=== PATIENT | female | born 1960 | race Caucasian/White ===

== ENCOUNTER 2016-09-02 08:00 | Outpatient (CLI) | payer OTHER ==
[~2016-09-02] VITALS: Ht 177.8 cm; Wt 117.9 kg
[~2016-09-02 08:00] MED LIST: COUMADIN; DULO20CA PO
[2016-09-02] MEDS ORDERED: NAPR500T PO (08:15)
[2016-09-02] MEDS ORDERED: LOSA50TA36 PO (08:15)
== END 2016-09-02 08:21 ==
LOC: PREOP 08:00
PROVIDERS: ATTEND Surgery
DX: Z01.818 Encounter for other preprocedural examination (principal); K52.9 Noninfective gastroenteritis and colitis, unspecified

== ENCOUNTER 2016-09-05 07:27 | Day surgery (SDC) | payer OTHER ==
[~2016-09-05] VITALS: Ht 177.8 cm; Wt 117.9 kg
[~2016-09-05 07:27] MED LIST changes: +LOSA50TA36 PO; +NAPR500T PO
[2016-09-05] MEDS ORDERED: NS IV 500 ML 500 ML ONE (07:36)
[2016-09-05] MEDS ORDERED: NS IV 500 ML 500 ML IV PRN (07:45)
[2016-09-05] MEDS ORDERED: FLUMAZENIL (ROMAZICON) 0.1 MG/ML 5 ML VIAL INJ PRN (07:45)
[2016-09-05] MEDS ORDERED: NALOXONE 0.4 MG/ML 1 ML (NARCAN) VIAL IVP PRN (07:45)
[2016-09-05 07:46] VITALS: BP 145/98
[2016-09-05] MEDS ORDERED: MIDAZOLAM 2 MG/2 ML (VERSED) VIAL ONE ×4 (09:00→09:15)
[2016-09-05] MEDS ORDERED: fentaNYL INJECTION 100 MCG/2 ML AMP ONE ×2 (09:00→09:13)
[2016-09-05] MEDS: MIDAZOLAM 2 MG/2 ML (VERSED) VIAL IVP PRN ×4 (09:10→09:19)
[2016-09-05] MEDS: fentaNYL INJECTION 100 MCG/2 ML AMP IVP PRN ×4 (09:11→09:20)
--- NOTE | 2016-09-05 09:38 | Endoscopy Procedure Report ---
Endoscopy Report Date: Sep 05, 2016 Preoperative Diagnosis: diarrhea. Family history of polyps Study Performed: Colonoscopy Procedure Instrument: Colonoscope Endo Procedure/Findings Findings 1.: Normal Recommendations: Recommendations: 1.: Colonscopy in 5 years Copy Copies To 1: CRISTÓBAL GALLO MD, XAVIER M MD Sep 05, 2016 9:38 am
--- NOTE | 2016-09-05 09:38 | Conscious Sedation/ASA ---
Conscious Sedation Pre-Proced Time Reviewed: 08:49 ASA Class: 2 Airway Mallampati Classification: (rosebud appropriate class) I. II. III, IV Lungs Heart ASA score ASA 1: a normal healthy patient ASA 2: a patient with a mild systemic disease (mid diabetes, controlled hypertension, obesity ASA 3: a patient with a severe systemic disease that limits activity (angina , COPD, prior Myocardial infarction) ASA 4: a patient with an incapacitating disease that is a constant threat to life (CHF, renal failure) ASA 5: a moribund patient not expected to survive 24 hrs. (ruptured aneurysm) ASA 6: a declared brain patient whose organs are being harvested. For emergent operations, add the letter E after the classification Grade 2 Sedation Plan: Discussed options with patient/fam Note The patient is an appropriate candidate to undergo the planned procedure, sedation, and anesthesia. The patient immediately re-assessed prior to indication. YANETH CHESTER MD Sep 05, 2016 9:37 am
--- NOTE | 2016-09-05 09:39 | Discharge Inst-Simple/Standard ---
Discharge Inst-Standard Discharge Medications New, Converted or Re-Newed RX: Other Patient Instructions/Follow Up Plan of Care/Instructions/FU: follow-up with her primary. Repeat colonoscopy in 5 years Activity as Tolerated: Yes Discharge Diet: No Restrictions YANETH CHESTER MD Sep 05, 2016 9:39 am
[2016-09-05 09:45] VITALS: BP 149/72
[2016-09-05 10:15] VITALS: BP 134/68
[2016-09-05 10:30] VITALS: BP 134/68
--- OUTSIDE RECORDS SUMMARY | 2016-09-05 21:17 | XMS REPORT ---
Author Author KARLEY GUIDO Organization [employer] Address Unknown Phone Unavailable Care Team Providers Care Dance Coach Name Role Phone KARLEY GUIDO CP Unavailable Allergies No Known Allergies Problems Problem Type Condition ICD-9 Code Onset Dates Condition Status Problem Pain in joint, lower leg 719.46 Active Problem Neck sprain and strain 847.0 Active Problem Unspecified concussion 850.9 Active Problem Other abnormal glucose 790.29 Active Problem Attention deficit disorder of childhood with hyperactivity 314.01 Active Problem Unspecified hypothyroidism 244.9 Active Problem Other dyspnea and respiratory abnormalities 786.09 Active Problem Unspecified constipation 564.00 Active Problem Plantar fascial fibromatosis 728.71 Active Problem Dyspepsia and other specified disorders of function of stomach 536.8 Active Problem Unspecified abnormal mammogram 793.80 Active Problem Major depressive disorder, recurrent episode, severe, without mention of psychotic behavior 296.33 Active Problem Unspecified essential hypertension 401.9 Active Problem Contact dermatitis and other eczema, due to unspecified cause 692.9 Active Problem Unspecified sleep apnea 780.57 Active Problem Attention deficit disorder of childhood without mention of hyperactivity 314.00 Active Problem Other enthesopathy of ankle and tarsus 726.79 Active Problem Pain in joint, shoulder region 719.41 Active Problem Unspecified episodic mood disorder 296.90 Active Problem Acute sinusitis, unspecified 461.9 Active Problem Stomatitis and mucositis, unspecified 528.00 Active Medications No Known Medications Results No Known Results Summary Purpose [employer] Submission
--- OUTSIDE RECORDS SUMMARY | 2016-09-05 21:19 | XMS REPORT ---
Author Author KARLEY GUIDO Organization [employer] Address Unknown Phone Unavailable Care Team Providers Care Sales And Customer Relations Rep Name Role Phone KARLEY GUIDO CP Unavailable Allergies No Known Allergies Problems Problem Type Condition Code Onset Dates Condition Status Problem Pain [...]
--- OUTSIDE RECORDS SUMMARY | 2016-09-05 21:19 | XMS REPORT | Continuity of Care Document ---
Author Author [facility] Organization [facility] Address Unknown Phone Unavailable Allergies Active Description Code Type Severity Reaction Onset Reported/Identified Relationship to Patient Clinical Status Yes codeine Drug Allergy N/A N/A 08/06/2010 Yes codeine Drug Allergy 08/06/2010 Yes sulfa drug Drug Allergy 08/06/2010 Yes azithromycin Drug Allergy N/A N/A 01/11/2011 Yes azithromycin Drug Allergy 01/11/2011 Yes ERTHROMYCIN ERTHROMYCIN Unknown NAUSEA 03/31/2011 Yes Sulfa (Sulfonamide Antibiotics) [id number] Drug Allergy Unknown N/A 03/31/2011 Yes erythromycin base [id number] Drug Allergy Moderate RASH 09/02/2016 Medications Problems Date Dx Coded Attending Type Code Diagnosis Diagnosed By 08/06/2010 KARLEY GUIDO MD 453.89 ACUTE VENOUS EMBOLISM AND THROMBOSIS OF OTHER SPECIFIED VEINS 08/06/2010 453.89 ACUTE VENOUS EMBOLISM AND THROMBOSIS OF OTHER SPECIFIED VEINS 08/06/2010 453.89 ACUTE VENOUS EMBOLISM AND THROMBOSIS OF OTHER SPECIFIED VEINS 08/06/2010 TANYA PACKER APRN 453.89 ACUTE VENOUS EMBOLISM AND THROMBOSIS OF OTHER SPECIFIED VEINS 08/06/2010 KARLEY GUIDO MD 453.89 ACUTE VENOUS EMBOLISM AND THROMBOSIS OF OTHER SPECIFIED VEINS 08/06/2010 KARLEY GUIDO MD 453.89 ACUTE VENOUS EMBOLISM AND THROMBOSIS OF OTHER SPECIFIED VEINS 08/06/2010 KARLEY GUIDO MD 453.89 ACUTE VENOUS EMBOLISM AND THROMBOSIS OF OTHER SPECIFIED VEINS 08/06/2010 453.89 ACUTE VENOUS EMBOLISM AND THROMBOSIS OF OTHER SPECIFIED VEINS 08/06/2010 453.89 Acute Venous Embolism And Thrombosis Of Other Specified Veins 08/06/2010 453.89 Acute Venous Embolism And Thrombosis Of Other Specified Veins 08/06/2010 453.89 Acute Venous Embolism And Thrombosis Of Other Specified Veins 08/06/2010 453.89 Acute Venous Embolism And Thrombosis Of Other Specified Veins 08/06/2010 453.89 Acute Venous Embolism And Thrombosis Of Other Specified Veins 08/06/2010 453.89 Acute Venous Embolism And Thrombosis Of Other Specified Veins 08/06/2010 453.89 Acute Venous Embolism And Thrombosis Of Other Specified Veins 08/06/2010 453.89 Acute Venous Embolism And Thrombosis Of Other Specified Veins 08/06/2010 TANYA PACKER APRN 453.89 Acute Venous Embolism And Thrombosis Of Other Specified Veins 08/06/2010 TANYA PACKER APRN 453.89 Acute Venous Embolism And Thrombosis Of Other Specified Veins 08/06/2010 TANYA PACKER APRN 453.89 Acute Venous Embolism And Thrombosis Of Other Specified Veins 08/06/2010 TANYA PACKER APRN 453.89 Acute Venous Embolism And Thrombosis Of Other Specified Veins 08/06/2010 LINDA CORNEJO DO 453.89 ACUTE VENOUS EMBOLISM AND THROMBOSIS OF OTHER SPECIFIED VEINS 08/06/2010 KARLEY GUIDO MD 453.89 Acute Venous Embolism And Thrombosis Of Other Specified Veins 08/06/2010 KARLEY GUIDO MD 453.89 Acute Venous Embolism And Thrombosis Of Other Specified Veins 08/06/2010 BO LUIS DO 453.89 Acute Venous Embolism And Thrombosis Of Other Specified Veins 08/06/2010 BO LUIS DO 453.89 Acute Venous Embolism And Thrombosis Of Other Specified Veins 08/06/2010 KARLEY GUIDO MD 453.89 Acute Venous Embolism And Thrombosis Of Other Specified Veins 08/12/2010 KARLEY GUIDO MD V58.69 taking high-risk medication 08/12/2010 V58.69 taking high-risk medication 08/12/2010 V58.69 taking high-risk medication 08/12/2010 TANYA PACKER APRN V58.69 taking high-risk medication 08/12/2010 KARLEY GUIDO MD V58.69 taking high-risk medication 08/12/2010 KARLEY GUIDO MD V58.69 taking high-risk medication 08/12/2010 KARLEY GUIDO MD V58.69 taking high-risk medication 08/12/2010 V58.69 taking high-risk medication 08/12/2010 V58.69 taking high-risk medication 08/12/2010 V58.69 taking high-risk medication 08/12/2010 V58.69 taking high-risk medication 08/12/2010 V58.69 taking high-risk medication 08/12/2010 V58.69 taking high-risk medication 08/12/2010 V58.69 taking high-risk medication 08/12/2010 V58.69 taking high-risk medication 08/12/2010 V58.69 taking high-risk medication 08/12/2010 TANYA PACKER APRN V58.69 taking high-risk medication 08/12/2010 TANYA PACKER APRN V58.69 taking high-risk medication 08/12/2010 TANYA PACKER APRN V58.69 taking high-risk medication 08/12/2010 TANYA PACKER APRN V58.69 taking high-risk medication 08/12/2010 LINDA CORNEJO DO V58.69 taking high-risk medication 08/12/2010 KARLEY GUIDO MD V58.69 taking high-risk medication 08/12/2010 KARLEY GUIDO MD V58.69 taking high-risk medication 08/12/2010 LUIS DOBO K V58.69 taking high-risk medication 08/12/2010 LUIS DOBO K V58.69 taking high-risk medication 08/12/2010 KARLEY GUIDO MD V58.69 TAKING HIGH-RISK MEDICATION 11/04/2010 KARLEY GUIDO MD 459.81 VENOUS (PERIPHERAL) INSUFFICIENCY UNSPECIFIED 11/04/2010 KARLEY GUIDO MD 780.4 DIZZINESS AND GIDDINESS 11/04/2010 459.81 VENOUS (PERIPHERAL) INSUFFICIENCY UNSPECIFIED 11/04/2010 780.4 DIZZINESS AND GIDDINESS 11/04/2010 459.81 VENOUS (PERIPHERAL) INSUFFICIENCY UNSPECIFIED 11/04/2010 780.4 DIZZINESS AND GIDDINESS 11/04/2010 TANYA PACKER APRN 459.81 VENOUS (PERIPHERAL) INSUFFICIENCY UNSPECIFIED 11/04/2010 TANYA PACKER APRN 780.4 DIZZINESS AND GIDDINESS 11/04/2010 KARLEY GUIDO MD 459.81 VENOUS (PERIPHERAL) INSUFFICIENCY UNSPECIFIED 11/04/2010 KARLEY GUIDO MD 780.4 DIZZINESS AND GIDDINESS 11/04/2010 KARLEY GUIDO MD 459.81 VENOUS (PERIPHERAL) INSUFFICIENCY UNSPECIFIED 11/04/2010 KARLEY GUIDO MD 780.4 DIZZINESS AND GIDDINESS 11/04/2010 KARLEY GUIDO MD 459.81 VENOUS (PERIPHERAL) INSUFFICIENCY UNSPECIFIED 11/04/2010 KARLEY GUIDO MD 780.4 DIZZINESS AND GIDDINESS 11/04/2010 459.81 VENOUS (PERIPHERAL) INSUFFICIENCY UNSPECIFIED 11/04/2010 780.4 DIZZINESS AND GIDDINESS 11/04/2010 459.81 Venous (peripheral) Insufficiency Unspecified 11/04/2010 780.4 Dizziness And Giddiness 11/04/2010 459.81 Venous (peripheral) Insufficiency Unspecified 11/04/2010 780.4 Dizziness And Giddiness 11/04/2010 459.81 Venous (peripheral) Insufficiency Unspecified 11/04/2010 780.4 Dizziness And Giddiness 11/04/2010 459.81 Venous (peripheral) Insufficiency Unspecified 11/04/2010 780.4 Dizziness And Giddiness 11/04/2010 459.81 Venous (peripheral) Insufficiency Unspecified 11/04/2010 780.4 Dizziness And Giddiness 11/04/2010 459.81 Venous (peripheral) Insufficiency Unspecified 11/04/2010 780.4 Dizziness And Giddiness 11/04/2010 459.81 Venous (peripheral) Insufficiency Unspecified 11/04/2010 780.4 Dizziness And Giddiness 11/04/2010 459.81 Venous (peripheral) Insufficiency Unspecified 11/04/2010 780.4 Dizziness And Giddiness 11/04/2010 TANYA PACKER APRN 459.81 Venous (peripheral) Insufficiency Unspecified 11/04/2010 TANYA PACKER APRN 780.4 Dizziness And Giddiness 11/04/2010 TANYA PACKER APRN 459.81 Venous (peripheral) Insufficiency Unspecified 11/04/2010 TANYA PACKER APRN 780.4 Dizziness And Giddiness 11/04/2010 TANYA PACKER APRN 459.81 Venous (peripheral) Insufficiency Unspecified 11/04/2010 TANYA PACKER APRN 780.4 Dizziness And Giddiness 11/04/2010 TANYA PACKER APRN 459.81 Venous (peripheral) Insufficiency Unspecified 11/04/2010 TANYA PACKER APRN 780.4 Dizziness And Giddiness 11/04/2010 LINDA CORNEJO DO 459.81 VENOUS (PERIPHERAL) INSUFFICIENCY UNSPECIFIED 11/04/2010 LINDA CORNEJO DO 780.4 DIZZINESS AND GIDDINESS 11/04/2010 KARLEY GUIDO MD 459.81 Venous (peripheral) Insufficiency Unspecified 11/04/2010 KARLEY GUIDO MD 780.4 Dizziness And Giddiness 11/04/2010 KARLEY GUIDO MD 459.81 Venous (peripheral) Insufficiency Unspecified 11/04/2010 KARLEY GUIDO MD 780.4 Dizziness And Giddiness 11/04/2010 BO LUIS DO K 459.81 Venous (peripheral) Insufficiency Unspecified 11/04/2010 TIERRA LUIS DOA K 780.4 Dizziness And Giddiness 11/04/2010 BO LUIS DO K 459.81 Venous (peripheral) Insufficiency Unspecified 11/04/2010 BO LUIS DO 780.4 Dizziness And Giddiness 11/04/2010 KARLEY GUIDO MD 459.81 Venous (peripheral) Insufficiency Unspecified 11/04/2010 KARLEY GUIDO MD 780.4 Dizziness And Giddiness 12/09/2010 KARLEY GUIDO MD 627.2 SYMPTOMATIC MENOPAUSAL OR FEMALE CLIMACTERIC STATES 12/09/2010 KARLEY GUIDO MD 724.5 BACKACHE UNSPECIFIED 12/09/2010 627.2 SYMPTOMATIC MENOPAUSAL OR FEMALE CLIMACTERIC STATES 12/09/2010 724.5 BACKACHE UNSPECIFIED 12/09/2010 627.2 SYMPTOMATIC MENOPAUSAL OR FEMALE CLIMACTERIC STATES 12/09/2010 724.5 BACKACHE UNSPECIFIED 12/09/2010 TANYA PACKER APRN 627.2 SYMPTOMATIC MENOPAUSAL OR FEMALE CLIMACTERIC STATES 12/09/2010 TANYA PACKER APRN 724.5 BACKACHE UNSPECIFIED 12/09/2010 KARLEY GUIDO MD 627.2 SYMPTOMATIC MENOPAUSAL OR FEMALE CLIMACTERIC STATES 12/09/2010 KARLEY GUIDO MD.5 BACKACHE UNSPECIFIED 12/09/2010 KARLEY GUIDO MD 627.2 SYMPTOMATIC MENOPAUSAL OR FEMALE CLIMACTERIC STATES 12/09/2010 KARLEY GUIDO MD4.5 BACKACHE UNSPECIFIED 12/09/2010 KARLEY GUIDO MD.2 SYMPTOMATIC MENOPAUSAL OR FEMALE CLIMACTERIC STATES 12/09/2010 KARLEY GUIDO MD 724.5 BACKACHE UNSPECIFIED 12/09/2010 627.2 SYMPTOMATIC MENOPAUSAL OR FEMALE CLIMACTERIC STATES 12/09/2010 724.5 BACKACHE UNSPECIFIED 12/09/2010 627.2 Symptomatic Menopausal Or Female Climacteric States 12/09/2010 724.5 BACKACHE UNSPECIFIED 12/09/2010 627.2 Symptomatic Menopausal Or Female Climacteric States 12/09/2010 724.5 BACKACHE UNSPECIFIED 12/09/2010 627.2 Symptomatic Menopausal Or Female Climacteric States 12/09/2010 724.5 BACKACHE UNSPECIFIED 12/09/2010 627.2 Symptomatic Menopausal Or Female Climacteric States 12/09/2010 724.5 BACKACHE UNSPECIFIED 12/09/2010 627.2 Symptomatic Menopausal Or Female Climacteric States 12/09/2010 724.5 BACKACHE UNSPECIFIED 12/09/2010 627.2 Symptomatic Menopausal Or Female Climacteric States 12/09/2010 724.5 BACKACHE UNSPECIFIED 12/09/2010 627.2 Symptomatic Menopausal Or Female Climacteric States 12/09/2010 724.5 BACKACHE UNSPECIFIED 12/09/2010 627.2 Symptomatic Menopausal Or Female Climacteric States 12/09/2010 724.5 BACKACHE UNSPECIFIED 12/09/2010 TANYA PACKER APRN 627.2 Symptomatic Menopausal Or Female Climacteric States 12/09/2010 TANYA PACKER APRN 724.5 BACKACHE UNSPECIFIED 12/09/2010 TANYA PACKER APRN 627.2 Symptomatic Menopausal Or Female Climacteric States 12/09/2010 TANYA PACKER APRN 724.5 BACKACHE UNSPECIFIED 12/09/2010 TANYA PACKER APRN 627.2 Symptomatic Menopausal Or Female Climacteric States 12/09/2010 TANYA PACKER APRN 724.5 BACKACHE UNSPECIFIED 12/09/2010 TANYA PACKER APRN 627.2 Symptomatic Menopausal Or Female Climacteric States 12/09/2010 TANYA PACKER APRN 724.5 BACKACHE UNSPECIFIED 12/09/2010 LINDA CORNEJO DO 627.2 SYMPTOMATIC MENOPAUSAL OR FEMALE CLIMACTERIC STATES 12/09/2010 LINDA CORNEJO DO F 724.5 BACKACHE UNSPECIFIED 12/09/2010 KARLEY GUIDO MD 627.2 Symptomatic Menopausal Or Female Climacteric States 12/09/2010 KARLEY GUIDO MD 724.5 BACKACHE UNSPECIFIED 12/09/2010 KARLEY GUIDO MD 627.2 Symptomatic Menopausal Or Female Climacteric States 12/09/2010 KARLEY GUIDO MD 724.5 BACKACHE UNSPECIFIED 12/09/2010 LUIS DO, BO K 627.2 Symptomatic Menopausal Or Female Climacteric States 12/09/2010 LUIS DO, BO K 724.5 BACKACHE UNSPECIFIED 12/09/2010 LUIS DO, BO K 627.2 Symptomatic Menopausal Or Female Climacteric States 12/09/2010 LUIS DO, BO K 724.5 BACKACHE UNSPECIFIED 12/09/2010 KARLEY GUIDO MD 627.2 Symptomatic Menopausal Or Female Climacteric States 12/09/2010 KARLEY GUIDO MD 724.5 BACKACHE UNSPECIFIED 01/03/2011 KARLEY GUIDO MD 300.4 DYSTHYMIA (DEPRESSIVE NEUROSIS), SECONDARY 01/03/2011 300.4 DYSTHYMIA (DEPRESSIVE NEUROSIS), SECONDARY 01/03/2011 300.4 DYSTHYMIA (DEPRESSIVE NEUROSIS), SECONDARY 01/03/2011 TANYA PACKER APRN 300.4 DYSTHYMIA (DEPRESSIVE NEUROSIS), SECONDARY 01/03/2011 KARLEY GUIDO MD 300.4 DYSTHYMIA (DEPRESSIVE NEUROSIS), SECONDARY 01/03/2011 KARLEY GUIDO MD 300.4 DYSTHYMIA (DEPRESSIVE NEUROSIS), SECONDARY 01/03/2011 KARLEY GUIDO MD 300.4 DYSTHYMIA (DEPRESSIVE NEUROSIS), SECONDARY 01/03/2011 300.4 DYSTHYMIA (DEPRESSIVE NEUROSIS), SECONDARY 01/03/2011 300.4 DYSTHYMIA (DEPRESSIVE NEUROSIS), SECONDARY 01/03/2011 300.4 DYSTHYMIA (DEPRESSIVE NEUROSIS), SECONDARY 01/03/2011 300.4 DYSTHYMIA (DEPRESSIVE NEUROSIS), SECONDARY 01/03/2011 300.4 DYSTHYMIA (DEPRESSIVE NEUROSIS), SECONDARY 01/03/2011 300.4 DYSTHYMIA (DEPRESSIVE NEUROSIS), SECONDARY 01/03/2011 300.4 DYSTHYMIA (DEPRESSIVE NEUROSIS), SECONDARY 01/03/2011 300.4 DYSTHYMIA (DEPRESSIVE NEUROSIS), SECONDARY 01/03/2011 300.4 DYSTHYMIA (DEPRESSIVE NEUROSIS), SECONDARY 01/03/2011 TANYA PACKER APRN 300.4 DYSTHYMIA (DEPRESSIVE NEUROSIS), SECONDARY 01/03/2011 TANYA PACKER APRN 300.4 DYSTHYMIA (DEPRESSIVE NEUROSIS), SECONDARY 01/03/2011 TANYA PACKER APRN 300.4 DYSTHYMIA (DEPRESSIVE NEUROSIS), SECONDARY 01/03/2011 TANYA PACKER APRN 300.4 DYSTHYMIA (DEPRESSIVE NEUROSIS), SECONDARY 01/03/2011 LINDA CORNEJO DO 300.4 DYSTHYMIA (DEPRESSIVE NEUROSIS), SECONDARY 01/03/2011 KARLEY GUIDO MD 300.4 DYSTHYMIA (DEPRESSIVE NEUROSIS), SECONDARY 01/03/2011 KARLEY GUIDO MD 300.4 DYSTHYMIA (DEPRESSIVE NEUROSIS), SECONDARY 01/03/2011 BO LUIS DO K 300.4 DYSTHYMIA (DEPRESSIVE NEUROSIS), SECONDARY 01/03/2011 LUIS BO ROBBINS K 300.4 DYSTHYMIA (DEPRESSIVE NEUROSIS), SECONDARY 01/03/2011 KARLEY GUIDO MD 300.4 DYSTHYMIA (DEPRESSIVE NEUROSIS), SECONDARY 01/11/2011 KARLEY GUIDO MD 792.1 Hemoccult positive stool 01/11/2011 KARLEY GUIDO MD V72.31 Routine Gynecological Exam 01/11/2011 792.1 Hemoccult positive stool 01/11/2011 V72.31 Routine Gynecological Exam 01/11/2011 792.1 Hemoccult positive stool 01/11/2011 V72.31 Routine Gynecological Exam 01/11/2011 TANYA PACKER APRN 792.1 Hemoccult positive stool 01/11/2011 TANYA PACKER APRN V72.31 Routine Gynecological Exam 01/11/2011 KARLEY GUIDO MD 792.1 Hemoccult positive stool 01/11/2011 KARLEY GUIDO MD V72.31 Routine Gynecological Exam 01/11/2011 KARLEY GUIDO MD 792.1 Hemoccult positive stool 01/11/2011 KARLEY GUIDO MD V72.31 Routine Gynecological Exam 01/11/2011 KARLEY GUIDO MD 792.1 Hemoccult positive stool 01/11/2011 KARLEY GUIDO MD V72.31 Routine Gynecological Exam 01/11/2011 792.1 Hemoccult positive stool 01/11/2011 V72.31 Routine Gynecological Exam 01/11/2011 792.1 Hemoccult Positive Stool 01/11/2011 V72.31 Routine Gynecological Exam 01/11/2011 792.1 Hemoccult Positive Stool 01/11/2011 V72.31 Routine Gynecological Exam 01/11/2011 792.1 Hemoccult Positive Stool 01/11/2011 V72.31 Routine Gynecological Exam 01/11/2011 792.1 Hemoccult Positive Stool 01/11/2011 V72.31 Routine Gynecological Exam 01/11/2011 792.1 Hemoccult Positive Stool 01/11/2011 V72.31 Routine Gynecological Exam 01/11/2011 792.1 Hemoccult Positive Stool 01/11/2011 V72.31 Routine Gynecological Exam 01/11/2011 792.1 Hemoccult Positive Stool 01/11/2011 V72.31 Routine Gynecological Exam 01/11/2011 792.1 Hemoccult Positive Stool 01/11/2011 V72.31 Routine Gynecological Exam 01/11/2011 TANYA PACKER APRN 792.1 Hemoccult Positive Stool 01/11/2011 TANYA PACKER APRN V72.31 Routine Gynecological Exam 01/11/2011 TANYA PACKER APRN 792.1 Hemoccult Positive Stool 01/11/2011 TANYA PACKER APRN V72.31 Routine Gynecological Exam 01/11/2011 TANYA PACKER APRN 792.1 Hemoccult Positive Stool 01/11/2011 TANYA PACKER APRN V72.31 Routine Gynecological Exam 01/11/2011 TANYA PACKER APRN 792.1 Hemoccult Positive Stool 01/11/2011 TANYA PACKER APRN V72.31 Routine Gynecological Exam 01/11/2011 LINDA CORNEJO DO 792.1 Hemoccult positive stool 01/11/2011 BARRYSUSAN DO LINDA F V72.31 Routine Gynecological Exam 01/11/2011 KARLEY GUIDO MD 792.1 Hemoccult Positive Stool 01/11/2011 KARLEY GUIDO MD V72.31 Routine Gynecological Exam 01/11/2011 KARLEY GUIDO MD 792.1 Hemoccult Positive Stool 01/11/2011 KARLEY GUIDO MD V72.31 Routine Gynecological Exam 01/11/2011 LUIS DO, BO K 792.1 Hemoccult Positive Stool 01/11/2011 LUIS DO, BO K V72.31 Routine Gynecological Exam 01/11/2011 LUIS DO, BO K 792.1 Hemoccult Positive Stool 01/11/2011 LUIS DO, BO K V72.31 Routine Gynecological Exam 01/11/2011 KARLEY GUIDO MD 792.1 Hemoccult Positive Stool 01/11/2011 KARLEY GUIDO MD V72.31 Routine Gynecological Exam 02/01/2011 KARLEY GUIDO MD 780.52 INSOMNIA UNSPECIFIED 02/01/2011 780.52 INSOMNIA UNSPECIFIED 02/01/2011 780.52 INSOMNIA UNSPECIFIED 02/01/2011 TANYA PACKER APRN 780.52 INSOMNIA UNSPECIFIED 02/01/2011 KARLEY GUIDO MD 780.52 INSOMNIA UNSPECIFIED 02/01/2011 KARLEY GUIDO MD 780.52 INSOMNIA UNSPECIFIED 02/01/2011 KARLEY GUIDO MD 780.52 INSOMNIA UNSPECIFIED 02/01/2011 780.52 INSOMNIA UNSPECIFIED 02/01/2011 780.52 INSOMNIA UNSPECIFIED 02/01/2011 780.52 INSOMNIA UNSPECIFIED 02/01/2011 780.52 INSOMNIA UNSPECIFIED 02/01/2011 780.52 INSOMNIA UNSPECIFIED 02/01/2011 780.52 INSOMNIA UNSPECIFIED 02/01/2011 780.52 INSOMNIA UNSPECIFIED 02/01/2011 780.52 INSOMNIA UNSPECIFIED 02/01/2011 780.52 INSOMNIA UNSPECIFIED 02/01/2011 TANYA PACKER APRN 780.52 INSOMNIA UNSPECIFIED 02/01/2011 TANYA PACKER APRN 780.52 INSOMNIA UNSPECIFIED 02/01/2011 TANYA PACKER APRN 780.52 INSOMNIA UNSPECIFIED 02/01/2011 TANYA PACKER APRN 780.52 INSOMNIA UNSPECIFIED 02/01/2011 CHANTAL LINDA 780.52 INSOMNIA UNSPECIFIED 02/01/2011 HAY CARTER, KARLEY 780.52 INSOMNIA UNSPECIFIED 02/01/2011 HAY CARTER, KARLEY 780.52 INSOMNIA UNSPECIFIED 02/01/2011 LUIS TIERRA ROBBINSA Yaneth 780.52 INSOMNIA UNSPECIFIED 02/01/2011 BO LUIS DO 780.52 INSOMNIA UNSPECIFIED 02/01/2011 KARLEY GUIDO MD 780.52 INSOMNIA UNSPECIFIED 03/21/2011 KARLEY GUIDO MD 536.8 DYSPEPSIA 03/21/2011 KARLEY GUIDO MD 564.00 Constipation 03/21/2011 KARLEY GUIDO MD 793.80 UNSPECIFIED (ABNORMAL) MAMMOGRAM 03/21/2011 536.8 DYSPEPSIA 03/21/2011 564.00 Constipation 03/21/2011 793.80 UNSPECIFIED (ABNORMAL) MAMMOGRAM 03/21/2011 536.8 DYSPEPSIA 03/21/2011 564.00 Constipation 03/21/2011 793.80 UNSPECIFIED (ABNORMAL) MAMMOGRAM 03/21/2011 TANYA PACKER APRN 536.8 DYSPEPSIA 03/21/2011 TANYA PACKER APRN 564.00 Constipation 03/21/2011 TANYA PACKER APRN 793.80 UNSPECIFIED (ABNORMAL) MAMMOGRAM 03/21/2011 KARLEY GUIDO MD 536.8 DYSPEPSIA 03/21/2011 KARLEY GUIDO MD 564.00 Constipation 03/21/2011 KARLEY GUIDO MD 793.80 UNSPECIFIED (ABNORMAL) MAMMOGRAM 03/21/2011 KARLEY GUIDO MD6.8 DYSPEPSIA 03/21/2011 KARLEY GUIDO MD 564.00 Constipation 03/21/2011 KARLEY GUIDO MD 793.80 UNSPECIFIED (ABNORMAL) MAMMOGRAM 03/21/2011 HAY CARTER, KARLEY 536.8 DYSPEPSIA 03/21/2011 KARLEY GUIDO MD 564.00 Constipation 03/21/2011 KARLEY GUIDO MD 793.80 UNSPECIFIED (ABNORMAL) MAMMOGRAM 03/21/2011 536.8 DYSPEPSIA 03/21/2011 564.00 Constipation 03/21/2011 793.80 UNSPECIFIED (ABNORMAL) MAMMOGRAM 03/21/2011 536.8 DYSPEPSIA 03/21/2011 564.00 Constipation 03/21/2011 793.80 UNSPECIFIED (ABNORMAL) MAMMOGRAM 03/21/2011 536.8 DYSPEPSIA 03/21/2011 564.00 Constipation 03/21/2011 793.80 UNSPECIFIED (ABNORMAL) MAMMOGRAM 03/21/2011 536.8 DYSPEPSIA 03/21/2011 564.00 Constipation 03/21/2011 793.80 UNSPECIFIED (ABNORMAL) MAMMOGRAM 03/21/2011 536.8 DYSPEPSIA 03/21/2011 564.00 Constipation 03/21/2011 793.80 UNSPECIFIED (ABNORMAL) MAMMOGRAM 03/21/2011 536.8 DYSPEPSIA 03/21/2011 564.00 Constipation 03/21/2011 793.80 UNSPECIFIED (ABNORMAL) MAMMOGRAM 03/21/2011 536.8 DYSPEPSIA 03/21/2011 564.00 Constipation 03/21/2011 793.80 UNSPECIFIED (ABNORMAL) MAMMOGRAM 03/21/2011 536.8 DYSPEPSIA 03/21/2011 564.00 Constipation 03/21/2011 793.80 UNSPECIFIED (ABNORMAL) MAMMOGRAM 03/21/2011 536.8 DYSPEPSIA 03/21/2011 564.00 Constipation 03/21/2011 793.80 UNSPECIFIED (ABNORMAL) MAMMOGRAM 03/21/2011 TANYA PACKER APRN 536.8 DYSPEPSIA 03/21/2011 TANYA PACKER APRN 564.00 Constipation 03/21/2011 TANYA PACKER APRN 793.80 UNSPECIFIED (ABNORMAL) MAMMOGRAM 03/21/2011 TANYA PACKER APRN 536.8 DYSPEPSIA 03/21/2011 TANYA PACKER APRN 564.00 Constipation 03/21/2011 TANYA PACKER APRN 793.80 UNSPECIFIED (ABNORMAL) MAMMOGRAM 03/21/2011 TANYA PACKER APRN 536.8 DYSPEPSIA 03/21/2011 TANYA PACKER APRN 564.00 Constipation 03/21/2011 TANYA PACKER APRN 793.80 UNSPECIFIED (ABNORMAL) MAMMOGRAM 03/21/2011 TANYA PACKER APRN 536.8 DYSPEPSIA 03/21/2011 TANYA PACKER APRN 564.00 Constipation 03/21/2011 TANYA PACKER APRN 793.80 UNSPECIFIED (ABNORMAL) MAMMOGRAM 03/21/2011 LINDA CORNEJO DO F 536.8 DYSPEPSIA 03/21/2011 LINDA CORNEJO DO F 564.00 Constipation 03/21/2011 LINDA CORNEJO DO F 793.80 UNSPECIFIED (ABNORMAL) MAMMOGRAM 03/21/2011 KARLEY GUIDO MD 536.8 DYSPEPSIA 03/21/2011 KARLEY GUIDO MD 564.00 Constipation 03/21/2011 KARLEY GUIDO MD 793.80 UNSPECIFIED (ABNORMAL) MAMMOGRAM 03/21/2011 KARLEY GUIDO MD 536.8 DYSPEPSIA 03/21/2011 KARLEY GUIDO MD 564.00 Constipation 03/21/2011 KARLEY GUIDO MD 793.80 UNSPECIFIED (ABNORMAL) MAMMOGRAM 03/21/2011 BO LUIS DO K 536.8 DYSPEPSIA 03/21/2011 TIERRA LUIS DOA K 564.00 Constipation 03/21/2011 JANELLE ROBBINS BO K 793.80 UNSPECIFIED (ABNORMAL) MAMMOGRAM 03/21/2011 TIERRA LUIS DOA K 536.8 DYSPEPSIA 03/21/2011 TIERRA LUIS DOA K 564.00 Constipation 03/21/2011 JANELLE ROBBINS BO K 793.80 UNSPECIFIED (ABNORMAL) MAMMOGRAM 03/21/2011 KARLEY GUIDO MD 536.8 DYSPEPSIA 03/21/2011 KARLEY GUIDO MD 564.00 Constipation 03/21/2011 KARLEY GUIDO MD 793.80 UNSPECIFIED (ABNORMAL) MAMMOGRAM 04/22/2011 KARLEY GUIDO MD 847.0 Sprain/strain Neck 04/22/2011 KARLEY GUIDO MD 850.9 Concussion Unspecified 04/22/2011 847.0 Sprain/strain Neck 04/22/2011 850.9 Concussion Unspecified 04/22/2011 847.0 Sprain/strain Neck 04/22/2011 850.9 Concussion Unspecified 04/22/2011 TANYA PACKER APRN 847.0 Sprain/strain Neck 04/22/2011 TANYA PACKER APRN 850.9 Concussion Unspecified 04/22/2011 HAY CARTER, KARLEY 847.0 Sprain/strain Neck 04/22/2011 HAY CARTER, KARLEY 850.9 Concussion Unspecified 04/22/2011 HAY CARTER, KARLEY 847.0 Sprain/strain Neck 04/22/2011 HAY CARTER, KARLEY 850.9 Concussion Unspecified 04/22/2011 HAY CARTER, KARLEY 847.0 Sprain/strain Neck 04/22/2011 HAY CARTER, KARLEY 850.9 Concussion Unspecified 04/22/2011 847.0 Sprain/strain Neck 04/22/2011 850.9 Concussion Unspecified 04/22/2011 847.0 Sprain/strain Neck 04/22/2011 850.9 Concussion Unspecified 04/22/2011 847.0 Sprain/strain Neck 04/22/2011 850.9 Concussion Unspecified 04/22/2011 847.0 Sprain/strain Neck 04/22/2011 850.9 Concussion Unspecified 04/22/2011 847.0 Sprain/strain Neck 04/22/2011 850.9 Concussion Unspecified 04/22/2011 847.0 Sprain/strain Neck 04/22/2011 850.9 Concussion Unspecified 04/22/2011 847.0 Sprain/strain Neck 04/22/2011 850.9 Concussion Unspecified 04/22/2011 847.0 Sprain/strain Neck 04/22/2011 850.9 Concussion Unspecified 04/22/2011 847.0 Sprain/strain Neck 04/22/2011 850.9 Concussion Unspecified 04/22/2011 TANYA PACKER APRN 847.0 Sprain/strain Neck 04/22/2011 TANYA PACKER APRN 850.9 Concussion Unspecified 04/22/2011 TANYA PACKER APRN 847.0 Sprain/strain Neck 04/22/2011 TANYA PACKER APRN 850.9 Concussion Unspecified 04/22/2011 TANYA PACKER APRN 847.0 Sprain/strain Neck 04/22/2011 TANYA PACKER APRN 850.9 Concussion Unspecified 04/22/2011 TANYA PACKER APRN 847.0 Sprain/strain Neck 04/22/2011 TANYA PACKER APRN 850.9 Concussion Unspecified 04/22/2011 WERDER DO LINDA F 847.0 Sprain/strain Neck 04/22/2011 KALYAN CORNEJO DOEN F 850.9 Concussion Unspecified 04/22/2011 KARLEY GUIDO MD 847.0 Sprain/strain Neck 04/22/2011 KARLEY GUIDO MD 850.9 Concussion Unspecified 04/22/2011 KARLEY GUIDO MD 847.0 Sprain/strain Neck 04/22/2011 KARLEY GUIDO MD 850.9 Concussion Unspecified 04/22/2011 LUIS DO, BO K 847.0 Sprain/strain Neck 04/22/2011 LUIS DO, BO K 850.9 Concussion Unspecified 04/22/2011 LUIS DO, BO K 847.0 Sprain/strain Neck 04/22/2011 LUIS DO, BO K 850.9 Concussion Unspecified 04/22/2011 KARLEY GUIDO MD 847.0 Sprain/strain Neck 04/22/2011 KARLEY GUIDO MD 850.9 Concussion Unspecified 05/03/2011 KARLEY GUIDO MD 719.41 Pain In Joint Involving Shoulder Region 05/03/2011 719.41 Pain In Joint Involving Shoulder Region 05/03/2011 719.41 Pain In Joint Involving Shoulder Region 05/03/2011 TANYA PACKER APRN 719.41 Pain In Joint Involving Shoulder Region 05/03/2011 KARLEY GUIDO MD 719.41 Pain In Joint Involving Shoulder Region 05/03/2011 KARLEY GUIDO MD 719.41 Pain In Joint Involving Shoulder Region 05/03/2011 KARLEY GUIDO MD 719.41 Pain In Joint Involving Shoulder Region 05/03/2011 719.41 Pain In Joint Involving Shoulder Region 05/03/2011 719.41 Pain In Joint Involving Shoulder Region 05/03/2011 719.41 Pain In Joint Involving Shoulder Region 05/03/2011 719.41 Pain In Joint Involving Shoulder Region 05/03/2011 719.41 Pain In Joint Involving Shoulder Region 05/03/2011 719.41 Pain In Joint Involving Shoulder Region 05/03/2011 719.41 Pain In Joint Involving Shoulder Region 05/03/2011 719.41 Pain In Joint Involving Shoulder Region 05/03/2011 719.41 Pain In Joint Involving Shoulder Region 05/03/2011 TANYA PACKER APRN 719.41 Pain In Joint Involving Shoulder Region 05/03/2011 TANYA PACKER APRN 719.41 Pain In Joint Involving Shoulder Region 05/03/2011 TANYA PACKER APRN 719.41 Pain In Joint Involving Shoulder Region 05/03/2011 TANYA PACKER APRN 719.41 Pain In Joint Involving Shoulder Region 05/03/2011 LINDA CORNEJO DO 719.41 Pain In Joint Involving Shoulder Region 05/03/2011 KARLEY GUIDO MD 719.41 Pain In Joint Involving Shoulder Region 05/03/2011 KARLEY GUIDO MD 719.41 Pain In Joint Involving Shoulder Region 05/03/2011 BO LUIS DO 719.41 Pain In Joint Involving Shoulder Region 05/03/2011 BO LUIS DO 719.41 Pain In Joint Involving Shoulder Region 05/03/2011 KARLEY GUIDO MD 719.41 Pain In Joint Involving Shoulder Region 07/05/2011 KARLEY GUIDO MD 296.33 MO DEPRESSIVE RECURRENT SEVERE W/O PSYCHOTIC BEHAVIOR 07/05/2011 KARLEY GUIDO MD 780.57 SLEEP APNEA 07/05/2011 296.33 MO DEPRESSIVE RECURRENT SEVERE W/O PSYCHOTIC BEHAVIOR 07/05/2011 780.57 SLEEP APNEA 07/05/2011 296.33 MO DEPRESSIVE RECURRENT SEVERE W/O PSYCHOTIC BEHAVIOR 07/05/2011 780.57 SLEEP APNEA 07/05/2011 TANYA PACKER APRN 296.33 MO DEPRESSIVE RECURRENT SEVERE W/O PSYCHOTIC BEHAVIOR 07/05/2011 TANYA PACKER APRN 780.57 SLEEP APNEA 07/05/2011 KARLEY GUIDO MD 296.33 MO DEPRESSIVE RECURRENT SEVERE W/O PSYCHOTIC BEHAVIOR 07/05/2011 KARLEY GUIDO MD 780.57 SLEEP APNEA 07/05/2011 KARLEY GUIDO MD 296.33 MO DEPRESSIVE RECURRENT SEVERE W/O PSYCHOTIC BEHAVIOR 07/05/2011 KARLEY GUIDO MD 780.57 SLEEP APNEA 07/05/2011 KARLEY GUIDO MD 296.33 MO DEPRESSIVE RECURRENT SEVERE W/O PSYCHOTIC BEHAVIOR 07/05/2011 KARLEY GUIDO MD 780.57 SLEEP APNEA 07/05/2011 296.33 MO DEPRESSIVE RECURRENT SEVERE W/O PSYCHOTIC BEHAVIOR 07/05/2011 780.57 SLEEP APNEA 07/05/2011 296.33 MO DEPRESSIVE RECURRENT SEVERE W/O PSYCHOTIC BEHAVIOR 07/05/2011 780.57 SLEEP APNEA 07/05/2011 296.33 MO DEPRESSIVE RECURRENT SEVERE W/O PSYCHOTIC BEHAVIOR 07/05/2011 780.57 SLEEP APNEA 07/05/2011 296.33 MO DEPRESSIVE RECURRENT SEVERE W/O PSYCHOTIC BEHAVIOR 07/05/2011 780.57 SLEEP APNEA 07/05/2011 296.33 MO DEPRESSIVE RECURRENT SEVERE W/O PSYCHOTIC BEHAVIOR 07/05/2011 780.57 SLEEP APNEA 07/05/2011 296.33 MO DEPRESSIVE RECURRENT SEVERE W/O PSYCHOTIC BEHAVIOR 07/05/2011 780.57 SLEEP APNEA 07/05/2011 296.33 MO DEPRESSIVE RECURRENT SEVERE W/O PSYCHOTIC BEHAVIOR 07/05/2011 780.57 SLEEP APNEA 07/05/2011 296.33 MO DEPRESSIVE RECURRENT SEVERE W/O PSYCHOTIC BEHAVIOR 07/05/2011 780.57 SLEEP APNEA 07/05/2011 296.33 MO DEPRESSIVE RECURRENT SEVERE W/O PSYCHOTIC BEHAVIOR 07/05/2011 780.57 SLEEP APNEA 07/05/2011 TANYA PACKER APRN 296.33 MO DEPRESSIVE RECURRENT SEVERE W/O PSYCHOTIC BEHAVIOR 07/05/2011 TANYA PACKER APRN 780.57 SLEEP APNEA 07/05/2011 TANYA PACKER APRN 296.33 MO DEPRESSIVE RECURRENT SEVERE W/O PSYCHOTIC BEHAVIOR 07/05/2011 TANYA PACKER APRN 780.57 SLEEP APNEA 07/05/2011 TANYA PACKER APRN 296.33 MO DEPRESSIVE RECURRENT SEVERE W/O PSYCHOTIC BEHAVIOR 07/05/2011 TANYA PACKER APRN 780.57 SLEEP APNEA 07/05/2011 TANYA PACKER APRN 296.33 MO DEPRESSIVE RECURRENT SEVERE W/O PSYCHOTIC BEHAVIOR 07/05/2011 TANYA PACKER APRN 780.57 SLEEP APNEA 07/05/2011 CHANTAL ROBBINS LINDA Jose Manuel 296.33 MO DEPRESSIVE RECURRENT SEVERE W/O PSYCHOTIC BEHAVIOR 07/05/2011 CHANTAL ROBBINS LINDA Jose Manuel 780.57 SLEEP APNEA 07/05/2011 KARLEY GUIDO MD 296.33 MO DEPRESSIVE RECURRENT SEVERE W/O PSYCHOTIC BEHAVIOR 07/05/2011 KARLEY GUIDO MD 780.57 SLEEP APNEA 07/05/2011 KARLEY GUIDO MD 296.33 MO DEPRESSIVE RECURRENT SEVERE W/O PSYCHOTIC BEHAVIOR 07/05/2011 KARLEY GUIDO MD 780.57 SLEEP APNEA 07/05/2011 LUIS DO, BO K 296.33 MO DEPRESSIVE RECURRENT SEVERE W/O PSYCHOTIC BEHAVIOR 07/05/2011 LUIS DO, BO K 780.57 SLEEP APNEA 07/05/2011 LUIS DO, BO K 296.33 MO DEPRESSIVE RECURRENT SEVERE W/O PSYCHOTIC BEHAVIOR 07/05/2011 LUIS DO, BO K 780.57 SLEEP APNEA 07/05/2011 KARLEY GUIDO MD 296.33 MO DEPRESSIVE RECURRENT SEVERE W/O PSYCHOTIC BEHAVIOR 07/05/2011 KARLEY GUIDO MD 780.57 SLEEP APNEA 08/25/2011 KARLEY GUIDO MD 296.90 MOOD DISORDER NOS 08/25/2011 296.90 MOOD DISORDER NOS 08/25/2011 296.90 MOOD DISORDER NOS 08/25/2011 TANYA PACKER APRN 296.90 MOOD DISORDER NOS 08/25/2011 KARLEY GUIDO MD 296.90 MOOD DISORDER NOS 08/25/2011 KARLEY GUIDO MD 296.90 MOOD DISORDER NOS 08/25/2011 KARLEY GUIDO MD 296.90 MOOD DISORDER NOS 08/25/2011 296.90 MOOD DISORDER NOS 08/25/2011 296.90 MOOD DISORDER NOS 08/25/2011 296.90 MOOD DISORDER NOS 08/25/2011 296.90 MOOD DISORDER NOS 08/25/2011 296.90 MOOD DISORDER NOS 08/25/2011 296.90 MOOD DISORDER NOS 08/25/2011 296.90 MOOD DISORDER NOS 08/25/2011 296.90 MOOD DISORDER NOS 08/25/2011 296.90 MOOD DISORDER NOS 08/25/2011 TANYA PACKER APRN 296.90 MOOD DISORDER NOS 08/25/2011 TANYA PACKER APRN 296.90 MOOD DISORDER NOS 08/25/2011 TANYA PACKER APRN 296.90 MOOD DISORDER NOS 08/25/2011 TANYA PACKER APRN 296.90 MOOD DISORDER NOS 08/25/2011 LINDA CORNEJO DO 296.90 MOOD DISORDER NOS 08/25/2011 KARLEY GUIDO MD 296.90 MOOD DISORDER NOS 08/25/2011 KARLEY GUIDO MD 296.90 MOOD DISORDER NOS 08/25/2011 LUIS DOBO K 296.90 MOOD DISORDER NOS 08/25/2011 LUIS DO, BO K 296.90 MOOD DISORDER NOS 08/25/2011 KARLEY GUIDO MD 296.90 MOOD DISORDER NOS 11/15/2011 KARLEY GUIDO MD 790.29 OTHER ABNORMAL GLUCOSE 11/15/2011 790.29 OTHER ABNORMAL GLUCOSE 11/15/2011 790.29 OTHER ABNORMAL GLUCOSE 11/15/2011 TANYA PACKER APRN 790.29 OTHER ABNORMAL GLUCOSE 11/15/2011 KARLEY GUIDO MD 790.29 OTHER ABNORMAL GLUCOSE 11/15/2011 KARLEY GUIDO MD 790.29 OTHER ABNORMAL GLUCOSE 11/15/2011 KARLEY GUIDO MD 790.29 OTHER ABNORMAL GLUCOSE 11/15/2011 790.29 OTHER ABNORMAL GLUCOSE 11/15/2011 790.29 OTHER ABNORMAL GLUCOSE 11/15/2011 790.29 OTHER ABNORMAL GLUCOSE 11/15/2011 790.29 OTHER ABNORMAL GLUCOSE 11/15/2011 790.29 OTHER ABNORMAL GLUCOSE 11/15/2011 790.29 OTHER ABNORMAL GLUCOSE 11/15/2011 790.29 OTHER ABNORMAL GLUCOSE 11/15/2011 790.29 OTHER ABNORMAL GLUCOSE 11/15/2011 790.29 OTHER ABNORMAL GLUCOSE 11/15/2011 TANYA PACKER APRN 790.29 OTHER ABNORMAL GLUCOSE 11/15/2011 TANYA PACKER APRN 790.29 OTHER ABNORMAL GLUCOSE 11/15/2011 TANYA PACKER APRN 790.29 OTHER ABNORMAL GLUCOSE 11/15/2011 TANYA PACKER APRN 790.29 OTHER ABNORMAL GLUCOSE 11/15/2011 LINDA CORNEJO DO 790.29 OTHER ABNORMAL GLUCOSE 11/15/2011 KARLEY GUIDO MD 790.29 OTHER ABNORMAL GLUCOSE 11/15/2011 KARLEY GUIDO MD 790.29 OTHER ABNORMAL GLUCOSE 11/15/2011 BO LUIS DO 790.29 OTHER ABNORMAL GLUCOSE 11/15/2011 BO LUIS DO K 790.29 OTHER ABNORMAL GLUCOSE 11/15/2011 KARLEY GUIDO MD 790.29 OTHER ABNORMAL GLUCOSE 02/20/2012 KARLEY GUIDO MD 728.71 PLANTAR FASCIAL FIBROMATOSIS 02/20/2012 728.71 PLANTAR FASCIAL FIBROMATOSIS 02/20/2012 728.71 PLANTAR FASCIAL FIBROMATOSIS 02/20/2012 TANYA PACKER APRN 728.71 PLANTAR FASCIAL FIBROMATOSIS 02/20/2012 KARLEY GUIDO MD 728.71 PLANTAR FASCIAL FIBROMATOSIS 02/20/2012 KARLEY GUIDO MD 728.71 PLANTAR FASCIAL FIBROMATOSIS 02/20/2012 KARLEY GUIDO MD 728.71 PLANTAR FASCIAL FIBROMATOSIS 02/20/2012 728.71 PLANTAR FASCIAL FIBROMATOSIS 02/20/2012 728.71 Plantar Fascial Fibromatosis 02/20/2012 728.71 Plantar Fascial Fibromatosis 02/20/2012 728.71 Plantar Fascial Fibromatosis 02/20/2012 728.71 Plantar Fascial Fibromatosis 02/20/2012 728.71 Plantar Fascial Fibromatosis 02/20/2012 728.71 Plantar Fascial Fibromatosis 02/20/2012 728.71 Plantar Fascial Fibromatosis 02/20/2012 728.71 Plantar Fascial Fibromatosis 02/20/2012 TANYA PACKER APRN 728.71 Plantar Fascial Fibromatosis 02/20/2012 TANYA PACKER APRN 728.71 Plantar Fascial Fibromatosis 02/20/2012 TANYA PACKER APRN 728.71 Plantar Fascial Fibromatosis 02/20/2012 TANYA PACKER APRN 728.71 Plantar Fascial Fibromatosis 02/20/2012 KARLEY GUIDO MD 728.71 Plantar Fascial Fibromatosis 02/20/2012 KARLEY GUIDO MD 728.71 Plantar Fascial Fibromatosis 02/20/2012 BO LUIS DO 728.71 Plantar Fascial Fibromatosis 02/20/2012 BO LUIS DO K 728.71 Plantar Fascial Fibromatosis 02/20/2012 KARLEY GUIDO MD 728.71 Plantar Fascial Fibromatosis 05/14/2012 KARLEY GUIDO MD 786.09 RESPIRATORY ABNORMALITY OTHER 05/14/2012 KARLEY GUIDO MD 786.09 RESPIRATORY ABNORMALITY OTHER 05/14/2012 786.09 RESPIRATORY ABNORMALITY OTHER 05/14/2012 786.09 Respiratory Abnormality Other 05/14/2012 786.09 Respiratory Abnormality Other 05/14/2012 786.09 Respiratory Abnormality Other 05/14/2012 786.09 Respiratory Abnormality Other 05/14/2012 786.09 Respiratory Abnormality Other 05/14/2012 786.09 Respiratory Abnormality Other 05/14/2012 786.09 Respiratory Abnormality Other 05/14/2012 786.09 Respiratory Abnormality Other 05/14/2012 TANYA PACKER APRN 786.09 Respiratory Abnormality Other 05/14/2012 TANYA PACKER APRN 786.09 Respiratory Abnormality Other 05/14/2012 TANYA PACKER APRN 786.09 Respiratory Abnormality Other 05/14/2012 TANYA PACKER APRN 786.09 Respiratory Abnormality Other 05/14/2012 KARLEY GUIDO MD 786.09 Respiratory Abnormality Other 05/14/2012 KARLEY GUIDO MD 786.09 Respiratory Abnormality Other 05/14/2012 LUIS DOBO K 786.09 Respiratory Abnormality Other 05/14/2012 LUIS DOBO K 786.09 Respiratory Abnormality Other 05/14/2012 KARLEY GUIDO MD 786.09 Respiratory Abnormality Other 06/28/2012 314.00 ADHD INATTENTIVE 06/28/2012 314.00 ADHD INATTENTIVE 06/28/2012 314.00 ADHD INATTENTIVE 06/28/2012 314.00 ADHD INATTENTIVE 06/28/2012 314.00 ADHD INATTENTIVE 06/28/2012 314.00 ADHD INATTENTIVE 06/28/2012 314.00 ADHD INATTENTIVE 06/28/2012 314.00 ADHD INATTENTIVE 06/28/2012 314.00 ADHD INATTENTIVE 06/28/2012 TANYA PACKER APRN 314.00 ADHD INATTENTIVE 06/28/2012 TANYA PACKER APRN 314.00 ADHD INATTENTIVE 06/28/2012 TANYA PACKER APRN 314.00 ADHD INATTENTIVE 06/28/2012 TANYA PACKER APRN 314.00 ADHD INATTENTIVE 06/28/2012 KARLEY GUIDO MD 314.00 ADHD INATTENTIVE 06/28/2012 KARLEY GUIDO MD 314.00 ADHD INATTENTIVE 06/28/2012 BO LUIS DO K 314.00 ADHD INATTENTIVE 06/28/2012 BO LUIS DO K 314.00 ADHD INATTENTIVE 06/28/2012 KARLEY GUIDO MD 314.00 ADHD INATTENTIVE 07/03/2012 401.9 UNSPECIFIED ESSENTIAL HYPERTENSION 07/03/2012 401.9 UNSPECIFIED ESSENTIAL HYPERTENSION 07/03/2012 401.9 UNSPECIFIED ESSENTIAL HYPERTENSION 07/03/2012 401.9 UNSPECIFIED ESSENTIAL HYPERTENSION 07/03/2012 401.9 UNSPECIFIED ESSENTIAL HYPERTENSION 07/03/2012 401.9 UNSPECIFIED ESSENTIAL HYPERTENSION 07/03/2012 401.9 UNSPECIFIED ESSENTIAL HYPERTENSION 07/03/2012 401.9 UNSPECIFIED ESSENTIAL HYPERTENSION 07/03/2012 TANYA PACKER APRN 401.9 UNSPECIFIED ESSENTIAL HYPERTENSION 07/03/2012 TANYA PACKER APRN 401.9 UNSPECIFIED ESSENTIAL HYPERTENSION 07/03/2012 TANYA PACKER APRN 401.9 UNSPECIFIED ESSENTIAL HYPERTENSION 07/03/2012 TANYA PACKER APRN 401.9 UNSPECIFIED ESSENTIAL HYPERTENSION 07/03/2012 KARLEY GUIDO MD 401.9 UNSPECIFIED ESSENTIAL HYPERTENSION 07/03/2012 KARLEY GUIDO MD 401.9 UNSPECIFIED ESSENTIAL HYPERTENSION 07/03/2012 TIERRA LUIS DOA K 401.9 UNSPECIFIED ESSENTIAL HYPERTENSION 07/03/2012 TIERRA LUIS DOA K 401.9 UNSPECIFIED ESSENTIAL HYPERTENSION 07/03/2012 KARLEY GUIDO MD 401.9 UNSPECIFIED ESSENTIAL HYPERTENSION 08/24/2012 726.79 TENDONITIS PERONEAL 08/24/2012 726.79 TENDONITIS PERONEAL 08/24/2012 726.79 TENDONITIS PERONEAL 08/24/2012 726.79 TENDONITIS PERONEAL 08/24/2012 726.79 TENDONITIS PERONEAL 08/24/2012 726.79 TENDONITIS PERONEAL 08/24/2012 TANYA PACKER APRN 726.79 TENDONITIS PERONEAL 08/24/2012 TANYA PACKER APRN 726.79 TENDONITIS PERONEAL 08/24/2012 TANYA PACKER APRN 726.79 TENDONITIS PERONEAL 08/24/2012 TANYA PACKER APRN 726.79 TENDONITIS PERONEAL 08/24/2012 KARLEY GUIDO MD 726.79 TENDONITIS PERONEAL 08/24/2012 KARLEY GUIDO MD 726.79 TENDONITIS PERONEAL 08/24/2012 LUIS DO BO K 726.79 TENDONITIS PERONEAL 08/24/2012 LUIS BO ROBBINS 726.79 TENDONITIS PERONEAL 08/24/2012 KARLEY GUIDO MD 726.79 TENDONITIS PERONEAL 09/20/2012 528.00 STOMATITIS AND MUCOSITIS UNSPECIFIED 09/20/2012 719.46 PAIN IN JOINT INVOLVING LOWER LEG 09/20/2012 528.00 STOMATITIS AND MUCOSITIS UNSPECIFIED 09/20/2012 719.46 PAIN IN JOINT INVOLVING LOWER LEG 09/20/2012 528.00 STOMATITIS AND MUCOSITIS UNSPECIFIED 09/20/2012 719.46 PAIN IN JOINT INVOLVING LOWER LEG 09/20/2012 528.00 STOMATITIS AND MUCOSITIS UNSPECIFIED 09/20/2012 719.46 PAIN IN JOINT INVOLVING LOWER LEG 09/20/2012 TANYA PACKER APRN 528.00 STOMATITIS AND MUCOSITIS UNSPECIFIED 09/20/2012 TANYA PACKER APRN 719.46 PAIN IN JOINT INVOLVING LOWER LEG 09/20/2012 TANYA PACKER APRN 528.00 STOMATITIS AND MUCOSITIS UNSPECIFIED 09/20/2012 TANYA PACKER APRN 719.46 PAIN IN JOINT INVOLVING LOWER LEG 09/20/2012 TANYA PACKER APRN 528.00 STOMATITIS AND MUCOSITIS UNSPECIFIED 09/20/2012 TANYA PACKER APRN 719.46 PAIN IN JOINT INVOLVING LOWER LEG 09/20/2012 TANYA PACKER APRN 528.00 STOMATITIS AND MUCOSITIS UNSPECIFIED 09/20/2012 TANYA PACKER APRN 719.46 PAIN IN JOINT INVOLVING LOWER LEG 09/20/2012 KARLEY GUIDO MD 528.00 STOMATITIS AND MUCOSITIS UNSPECIFIED 09/20/2012 KARLEY GUIDO MD 719.46 PAIN IN JOINT INVOLVING LOWER LEG 09/20/2012 KARLEY GUIDO MD 528.00 STOMATITIS AND MUCOSITIS UNSPECIFIED 09/20/2012 KARLEY GUIDO MD 719.46 PAIN IN JOINT INVOLVING LOWER LEG 09/20/2012 OB LUIS DO 528.00 STOMATITIS AND MUCOSITIS UNSPECIFIED 09/20/2012 BO LUIS DO 719.46 PAIN IN JOINT INVOLVING LOWER LEG 09/20/2012 BO LUIS DO 528.00 STOMATITIS AND MUCOSITIS UNSPECIFIED 09/20/2012 BO LUIS DO 719.46 PAIN IN JOINT INVOLVING LOWER LEG 09/20/2012 KARLEY GUIDO MD 528.00 STOMATITIS AND MUCOSITIS UNSPECIFIED 09/20/2012 KARLEY GUIDO MD 719.46 PAIN IN JOINT INVOLVING LOWER LEG 11/05/2012 692.9 CONTACT DERMATITIS AND OTHER ECZEMA UNSPECIFIED CAUSE 11/05/2012 692.9 CONTACT DERMATITIS AND OTHER ECZEMA UNSPECIFIED CAUSE 11/05/2012 692.9 CONTACT DERMATITIS AND OTHER ECZEMA UNSPECIFIED CAUSE 11/05/2012 TANYA PACKER APRN 692.9 CONTACT DERMATITIS AND OTHER ECZEMA UNSPECIFIED CAUSE 11/05/2012 TANYA PACKER APRN 692.9 CONTACT DERMATITIS AND OTHER ECZEMA UNSPECIFIED CAUSE 11/05/2012 TANYA PACKER APRN 692.9 CONTACT DERMATITIS AND OTHER ECZEMA UNSPECIFIED CAUSE 11/05/2012 TANYA PACKER APRN 692.9 CONTACT DERMATITIS AND OTHER ECZEMA UNSPECIFIED CAUSE 11/05/2012 KARLEY GUIDO MD 692.9 CONTACT DERMATITIS AND OTHER ECZEMA UNSPECIFIED CAUSE 11/05/2012 KARLEY GUIDO MD 692.9 CONTACT DERMATITIS AND OTHER ECZEMA UNSPECIFIED CAUSE 11/05/2012 BO LUIS DO 692.9 CONTACT DERMATITIS AND OTHER ECZEMA UNSPECIFIED CAUSE 11/05/2012 BO LUIS DO 692.9 CONTACT DERMATITIS AND OTHER ECZEMA UNSPECIFIED CAUSE 11/05/2012 KARLEY GUIDO MD 692.9 CONTACT DERMATITIS AND OTHER ECZEMA UNSPECIFIED CAUSE 11/08/2012 314.01 ADHD COMBINED 11/08/2012 314.01 ADHD COMBINED 11/08/2012 TANYA PACKER APRN 314.01 ADHD COMBINED 11/08/2012 TANYA PACKER APRN 314.01 ADHD COMBINED 11/08/2012 TANYA PACKER APRN 314.01 ADHD COMBINED 11/08/2012 TANYA PACKER APRN 314.01 ADHD COMBINED 11/08/2012 KARLEY GUIDO MD 314.01 ADHD COMBINED 11/08/2012 KARLEY GUIDO MD 314.01 ADHD COMBINED 11/08/2012 BO LUIS DO 314.01 ADHD COMBINED 11/08/2012 BO LUIS DO 314.01 ADHD COMBINED 11/08/2012 KARLEY GUIDO MD 314.01 ADHD COMBINED 05/28/2013 KARLEY GUIDO MD 461.9 ACUTE SINUSITIS UNSPECIFIED 05/28/2013 BO LUIS DO 461.9 ACUTE SINUSITIS UNSPECIFIED 05/28/2013 BO LUIS DO 461.9 ACUTE SINUSITIS UNSPECIFIED 05/28/2013 KARLEY GUIDO MD 461.9 ACUTE SINUSITIS UNSPECIFIED 02/17/2014 KARLEY GUIDO MD 244.9 UNSPECIFIED ACQUIRED HYPOTHYROIDISM 08/25/2016 ROSA MARIA HINOJOSAP Ot 793.81 MAMMOGRAPHIC MICROCLACIFICATION 08/25/2016 ROSA MARIA HINOJOSA AIRLINE STEWARDESS Ot V67.9 FOLLOW-UP EXAM NOS 08/31/2016 ROSA MARIA HINOJOSA AIRLINE STEWARDESS Ot 793.81 MAMMOGRAPHIC MICROCLACIFICATION 08/31/2016 ROSA MARIA HINOJOSAP Ot V67.9 FOLLOW-UP EXAM NOS 09/01/2016 ROSA MARIA HINOJOSA Ot 793.81 MAMMOGRAPHIC MICROCLACIFICATION 09/01/2016 ROSA MARIA HINOJOSA AIRLINE STEWARDESS Ot V67.9 FOLLOW-UP EXAM NOS Procedures Code [place] [address] A1C (IN-HOUSE) 11484 INR (IN HOUSE) 12146 XRAY FOOT RIGHT 2 VIEWS 02/27/2012 50174 INR (IN HOUSE) 86002 ROUTINE VENIPUNCTURE 05/14/2012 29225 INR (IN HOUSE) 16084 CMP 05/14/2012 2125879 GFR CALC (RESULT ONLY) 05/14/2012 06558 BNP 05/14/2012 Podiatry Tayla Cardenas 05/15/2012 13344 INR (IN HOUSE) 29590 MRI BREAST LEFT 06/28/2012 55096 INR (IN HOUSE) 62593 INR (IN HOUSE) 21291 STRAPPING OF ANKLE AND/OR FT 08/24/2012 03050 XRAY FOOT RIGHT COMP MIN 3 VIEWS 08/24/2012 09921 ROUTINE VENIPUNCTURE 11/05/2012 29361 INR (IN HOUSE) 12622 TSH 11/05/2012 98528 INR (IN HOUSE) 72512 INR (IN HOUSE) 46208 OXIMETRY 2013 Results Encounters ACCT No. Visit Date/Time Discharge Status Pt. Type Provider Facility Loc./Unit Complaint [id number] 09/02/2016 08:00:00 2016 08:21:00 DIS Outpatient YANETH CHESTER MD [facility] PREOP COLONOSCOPY [id number] 11/01/2013 08:56:00 2013 23:59:59 CLS Outpatient ROSA MARIA HINOJOSA [facility] RAD NINE MONTH F/U [id number] 11/06/2012 13:31:00 2012 23:59:59 CLS Outpatient [id number] 07/23/2012 12:50:00 2012 23:59:59 CLS Outpatient [id number] 09/05/2016 08:30:00 PEN Preadmit YNAETH CHESTER MD [facility] ENDO CHRONIC DIARRHEA
== END 2016-09-05 10:30 | disposition home or self-care (01) ==
LOC: ENDO 07:27
PROVIDERS: ATTEND Surgery
DX: K52.9 Noninfective gastroenteritis and colitis, unspecified (principal); Z83.71 Family history of colonic polyps; I10 Essential (primary) hypertension; G47.33 Obstructive sleep apnea (adult) (pediatric); M19.90 Unspecified osteoarthritis, unspecified site; F32.9 Major depressive disorder, single episode, unspecified

== ENCOUNTER → 2016-10-19 | Outpatient (CLI) | payer OTHER ==
--- NOTE | 2016-10-19 16:45 | Diagnostic Imaging Report ---
EXAMINATION: Three views of the thoracic spine. INDICATION: Back pain. FINDINGS: The alignment of the thoracic spine is satisfactory. The vertebral body heights are preserved. Disc heights are also preserved. Minimal anterior osteophytes are seen. No posterior osteophytes noted. The heart is moderately enlarged. IMPRESSION: Mild degenerative changes. Cardiomegaly. Dictated by: Dictated on workstation # [id number]
== END ==
LOC: RAD 15:18
PROVIDERS: ATTEND Nurse Practitioner Family
DX: M54.6 Pain in thoracic spine (principal); I51.7 Cardiomegaly
CPT/HCPCS: 72070

== ENCOUNTER 2016-12-05 11:14 | Outpatient (RCR) | payer OTHER | END 2016-12-10 | disposition home or self-care (01) | PROVIDERS: ATTEND Family Medicine | DX: M54.6 Pain in thoracic spine (principal) ==

== ENCOUNTER 2021-07-26 18:55 | Emergency (ER) | payer MEDICAID ==
[~2021-07-26] VITALS: Ht 175 cm; Wt 100.0 kg
[~2021-07-26 18:55] MED LIST changes: -LOSA50TA36 PO; +LOSA50TA63 PO; +NAPR-1071 PO; -NAPR500T PO
[2021-07-26] MEDS ORDERED: KETOROLAC 30 MG/ML VIAL IM ONE (20:00)
--- NOTE | 2021-07-26 20:26 | Diagnostic Imaging Report ---
CLINICAL HISTORY: Chronic left knee pain. No known injury. COMPARISON: None. TECHNIQUE: 3 views of the left knee. FINDINGS: There is no acute fracture or dislocation of the left knee. Alignment is anatomic. Advanced degenerative changes are seen in the left knee with joint space narrowing, marginal osteophytes, and subchondral sclerosis. Small joint effusion is seen in the left knee. IMPRESSION: 1. No acute fracture or dislocation in the left knee. 2. Advanced osteoarthritis in the left knee. 3. Small left knee joint effusion. Dictated by: Dictated on workstation # [id number]
--- NOTE | 2021-07-26 21:40 | ED Lower Extremity ---
General Chief Complaint: Lower Extremity Stated Complaint: BILAT KNEE PAIN History of Present Illness Date Seen by Provider: July 26, 2021 Time Seen by Provider: 19:10 Initial Comments 61-year-old female is here with PMH of chronic bilateral knee pain and osteoarthritis, and is here with worsening knee pain on the left side. Denies injuries, fall, trauma to the knees. Patient is able to ambulate but feels stiff. Patient has moved here from [place] recently. Patient was told by her Ortho that she needs to have knee replacements done but has not yet made appointments to see her doctor. Patient is mainly here for pain control. Allergies and Home Medications Allergies Coded Allergies: erythromycin base (Verified Allergy, Intermediate, RASH, 09/02/16) Sulfa (Sulfonamide Antibiotics) (Verified Allergy, Unknown, 03/31/11) Patient Home Medication List Home Medication List Reviewed: Yes Losartan Potassium (Losartan Potassium) 50 Mg Tablet, 50 MG PO DAILY, (Reported) Entered as Reported by: TANYA HILL on 09/02/16 0815 Naproxen (Naprosyn) 500 Mg Tablet, 500 MG PO DAILY, (Reported) Entered as Reported by: TANYA HILL on 09/02/16 0815 Review of Systems Constitutional: no symptoms reported EENTM: no symptoms reported Respiratory: no symptoms reported Cardiovascular: no symptoms reported Gastrointestinal: no symptoms reported Genitourinary: no symptoms reported Musculoskeletal: joint pain, joint swelling Skin: no symptoms reported Psychiatric/Neurological: No Symptoms Reported Past Nsvvnfo-Faxqox-Gnhrdk Hx Seasonal Allergies Seasonal Allergies: Yes Past Medical History Tonsillectomy Sleep Apnea Deep Vein Thrombosis, Hypertension Reproductive Disorders: No Sexually Transmitted Disease: No HIV/AIDS: No Chronic Diarrhea Arthritis, Chronic Back Pain Loss of Vision: Bilateral Hearing Impairment: Denies Depression Adverse Reaction/Blood Tranf: No (N/A) Physical Exam Vital Signs Capillary Refill : Height, Weight, BMI Height: 5'10.00" Weight: 260lbs. 0.0oz. [id number]; 37.3 BMI Method: General Appearance: WD/WN HEENT: PERRL/EOMI Neck: full range of motion Knees: bilateral knee non-tender, bilateral knee no evidence of injury, bilateral knee joint effusion, bilateral knee pain, bilateral knee soft tissue tenderness, bilateral knee swelling Neurologic/Psychiatric: no motor/sensory deficits, alert, normal mood/affect, oriented x 3 Skin: normal color Progress/Results/Core Measures Results/Orders My Orders Orders - ANÍBAL VASQUEZ MD Knee, Left, 3 Views (07/26/21 19:50) Ketorolac Injection (Toradol Injection) (07/26/21 20:00) Medications Given in ED Current Medications Medications Dose Ordered Sig/Kira Route Start Time Stop Time Status Last Admin Dose Admin Ketorolac Tromethamine 30 mg ONCE ONCE IM 07/26/21 20:00 07/26/21 20:01 DC 07/26/21 20:30 30 MG Progress Progress Note : Progress Note 1. ACUTE ON CHRONIC KNEE PAIN DUE TO OSTEOARTHRITIS - XR LEFT KNEE: see below - Toradol inject - Pt takes Tramadol at home - Diclofenac gel prescribed - F/u with head of cytogenetics and Ortho MAKAYLA. F/u with PCP as well. Diagnostic Imaging Diagonstic Imaging: Xray Plain Films/CT/US/NM/MRI: knee Comments [facility] [place] NAME: DREW ENC[facility] REC#: [id number] PT STATUS: REG ER : 1960 PHYSICIAN: ANÍBAL VASQUEZ MD ADMIT DATE: 07/26/21/ER Signed Date of Exam:07/26/21 KNEE, LEFT, 3 VIEWS CLINICAL HISTORY: Chronic left knee pain. No known injury. COMPARISON: None. TECHNIQUE: 3 views of the left knee. FINDINGS: There is no acute fracture or dislocation of the left knee. Alignment is anatomic. Advanced degenerative changes are seen in the left knee with joint space narrowing, marginal osteophytes, and subchondral sclerosis. Small joint effusion is seen in the left knee. IMPRESSION: 1. No acute fracture or dislocation in the left knee. 2. Advanced osteoarthritis in the left knee. 3. Small left knee joint effusion. Dictated by: Dictated on workstation # [id number] Dict: 07/26/212022 Trans: 07/26/212027 [facility] [id number] Interpreted by: GLORIA BREWSTER DO Electronically signed by: GLORIA BREWSTER DO 07/26/212027 Departure Impression Primary Impression: Osteoarthritis Qualified Codes: M17.12 - Unilateral primary osteoarthritis, left knee Additional Impression: Knee pain Qualified Codes: M25.562 - Pain in left knee; G89.29 - Other chronic pain Disposition: 01 HOME, SELF-CARE Condition: Stable Departure-Patient Inst. Referrals: [facility] (PCP) Primary Care Physician TOMA GALVEZ APRN (Family) Primary Care Physician Patient Instructions: Chronic Knee Pain (DC) Add. Discharge Instructions: Follow-up with rheumatology and orthopedics and PCP as soon as possible Diclofenac gel prescribed and refill a few pills of her tramadol since she is out All discharge instructions reviewed with patient and/or family. Voiced understanding. Scripts Tramadol HCl (Tramadol HCl) 50 Mg Tablet 50 MG PO Q6H PRN for PAIN-MODERATE (5-7) for 2 Days, #8 TAB Prov: ANÍBAL VASQUEZ MD 07/26/21 Diclofenac Sodium (Diclofono) 1.6 % Gel.packet 2.5 GM TP Q8H for Pain, #1 EA Prov: ANÍBAL VASQUEZ MD 07/26/21 ANÍBAL VASQUEZ MD July 26, 2021 21:40
[2021-07-26] MEDS ORDERED: DICL2.5G TP (21:43)
[2021-07-26] MEDS ORDERED: TRM50T PO (21:43)
[2021-07-26 21:48] VITALS: BP 127/72
== END 2021-07-26 21:48 | disposition home or self-care (01) ==
LOC: EDUNIT# 18:55 → ER 18:56
DX: M17.0 Bilateral primary osteoarthritis of knee (principal)
CPT/HCPCS: 73562

== ENCOUNTER 2021-10-11 05:31 | Outpatient (RCR) | payer MEDICAID ==
[2021-10-06 09:31] LABS: BILIRUBIN,URINE NEGATIVE (NEGATIVE); CLARITY,URINE CLEAR; COLOR,URINE YELLOW; GLUCOSE, URINE (UA) NEGATIVE (NEGATIVE); KETONES,URINE NEGATIVE (NEGATIVE); LEUKOCYTE ESTERASE ,URINE TRACE (NEGATIVE); NITRITE,URINE NEGATIVE (NEGATIVE); PH,URINE 5.5 (5-9); PROTEIN,URINE NEGATIVE (NEGATIVE)
[2021-10-06 09:51] LABS: BASOPHILS # (AUTO) 0.1 10^3/uL (0.0-0.1); BASOPHILS % (AUTO) 1 % (0-10); EOSINOPHILS # (AUTO) 0.1 10^3/uL (0.0-0.3); EOSINOPHILS % (AUTO) 1 % (0-10); HEMATOCRIT 42 % (35-52); HEMOGLOBIN 13.9 g/dL (11.5-16.0); LYMPHOCYTES # (AUTO) 1.6 10^3/uL (1.0-4.0); LYMPHOCYTES % (AUTO) 20 % (12-44); MEAN CORPUSCULAR HEMOGLOBIN 30 pg (25-34); MEAN CORPUSCULAR HGB CONC 33 g/dL (32-36); MEAN CORPUSCULAR VOLUME 91 fL (80-99); MEAN PLATELET VOLUME 9.6 fL (9.0-12.2); MONOCYTES # (AUTO) 0.5 10^3/uL (0.0-1.0); MONOCYTES % (AUTO) 6 % (0-12); NEUTROPHILS # (AUTO) 5.5 10^3/uL (1.8-7.8); NEUTROPHILS % (AUTO) 72 % (42-75); PLATELET COUNT 244 10^3/uL (130-400); WHITE BLOOD COUNT 7.7 10^3/uL (4.3-11.0)
[2021-10-06 09:55] LABS: WBC,URINE 0-2 /HPF
[2021-10-06 09:56] LABS: BACTERIA,URINE TRACE /HPF; SQUAMOUS EPITHELIAL CELL,UR 0-2 /HPF
[2021-10-06 09:59] LABS: INR 0.9 (0.8-1.4); PROTHROMBIN TIME PATIENT 12.8 SEC (12.2-14.7)
[2021-10-06 10:05] LABS: ALBUMIN 4.1 GM/DL (3.2-4.5); BILIRUBIN,TOTAL 0.7 MG/DL (0.1-1.0); CALCIUM 9.1 MG/DL (8.5-10.1); CREATININE SERUM 0.83 MG/DL (0.60-1.30); POTASSIUM 3.5 MMOL/L (3.6-5.0); TOTAL PROTEIN 6.8 GM/DL (6.4-8.2)
[2021-10-06 10:17] LABS: ERYTHROCYTE SEDIMENTATION RATE 12 MM/HR (0-30)
[2021-10-06 11:00] VITALS: BP 132/67
--- NOTE | 2021-10-06 11:49 | Diagnostic Imaging Report ---
INDICATION: Preop clearance. FINDINGS: PA and lateral views. The lungs are well-aerated and clear. Heart is not enlarged. No pneumothorax or pleural effusion. No bony abnormalities. IMPRESSION: Normal PA and lateral chest. Dictated by: Dictated on workstation # [id number]
[~2021-10-11] VITALS: Ht 175.3 cm; Wt 100.0 kg
[~2021-10-11 05:31] MED LIST changes: +ACET325C7 PO; +AMPH20TA2 PO; +CALC-308 PO; +DICL2.5G TP; +DULO30CA49 PO; +LEVO50CA4 PO; +LOSA1TAB23 PO; +MULT-974 PO; +TRAZ-227 PO; +TRM50T PO; +VALB80CA PO; +VITAMIN D WEEKLY
== END 2021-10-11 10:47 | disposition home or self-care (01) ==
LOC: PREOP 05:31
PROVIDERS: ATTEND Orthopaedic Surgery
DX: Z01.818 Encounter for other preprocedural examination (principal); M17.12 Unilateral primary osteoarthritis, left knee; Z96.652 Presence of left artificial knee joint
CPT/HCPCS: 36415; 71046; 80053; 81000; 82308; 85025; 85610; 85652; 86850; 86900; 86901; 87081; 87636

== ENCOUNTER 2021-10-13 06:00 | Observation (INO) | payer MEDICAID ==
--- NOTE | 2021-10-06 08:30 | HISTORY AND PHYSICAL ---
DATE OF SERVICE: INPATIENT ADMISSION HISTORY AND PHYSICAL This will be for inpatient admission on 10/13/2021 for left total knee arthroplasty. The patient will require regular inpatient admission due to pain management, need for physical therapy and comorbidities. HISTORY OF PRESENT ILLNESS: The patient is a 61-year-old female with longstanding progressive left knee pain. She has undergone multiple injections in the knee. She reports that these are not helping over the last several months. She reports pain medially and laterally as well as anteriorly. She reports pain with activities. She reports activity limitations. Due to functional impairment and failure to improve with conservative measures, the patient elected to proceed with surgical intervention. Radiographs reveal complete loss of medial and lateral joint space as well as patellofemoral joint space. She has osteophyte formation in all three compartments. REVIEW OF SYSTEMS: No chest pain, no shortness of breath, no dysuria. PAST MEDICAL HISTORY: Hypertension, hypothyroidism. PAST SURGICAL HISTORY: Left knee arthroscopy, left calcaneal osteophyte excision, gastric sleeve, left breast biopsy and tonsillectomy. FAMILY HISTORY: Noncontributory. PRIMARY CARE PROVIDER: [facility]. MEDICATIONS: Adderall, vitamin B12, losartan/hydrochlorothiazide, multivitamin, calcium, Vyvanse, duloxetine, levothyroxine, trazodone, vitamin D, diclofenac, Ingrezza, tramadol. ALLERGIES: SULFA. SOCIAL HISTORY: The patient denies tobacco and alcohol use. PHYSICAL EXAMINATION: GENERAL: The patient is well-developed, well-nourished, in no acute distress. HEENT: Normocephalic, atraumatic. Pupils are equal, round and reactive to light. Oropharynx is clear. NECK: Supple, with no lymphadenopathy. LUNGS: Clear to auscultation bilaterally. HEART: Regular rate and rhythm. ABDOMEN: Soft, nontender, nondistended. EXTREMITIES: The left knee demonstrates marked patellofemoral crepitus and pain with patellar loading. She is tender along the medial and lateral joint lines. Range of motion is 0/2/120. There is no varus valgus laxity, negative anterior and posterior drawer. She ambulates with an antalgic gait. IMPRESSION: Severe left knee osteoarthritis. PLAN: Left total knee arthroplasty. The risks, benefits, options, ramifications and recovery have been discussed at length with the patient. She understands and wishes to proceed. Job ID: [id number] DocumentID: [id number] Dictated Date: 09/20/2021 09:17:53 Printing Machine Mechanic Date: 09/20/2021 09:54:39 Dictated By: LITTLE DENNIS MD
[~2021-10-13] VITALS: Ht 175 cm; Wt 100.0 kg
[2021-10-13] VITALS (11 sets, daily range): BP systolic 115–159; BP diastolic 68–96
[2021-10-13] MEDS ORDERED: CEFUROXIME INJECTION 1,500 MG in NS (IVPB) 50 ML IV ONE (06:15)
[2021-10-13] MEDS: LACTATED RINGERS 1,000 ML IV PRN ×2 (06:25→07:59)
[2021-10-13] MEDS ORDERED: LIDOCAINE PF 2% 5 ML (XYLOCAINE) VIAL ONE (06:52)
[2021-10-13] MEDS ORDERED: ROPIVACAINE 5MG/ML 30ML VIAL ONE (06:52)
[2021-10-13] MEDS ORDERED: MIDAZOLAM 2 MG/2 ML (VERSED) VIAL ONE (06:52)
[2021-10-13] MEDS ORDERED: ONDANSETRON 4 MG/2 ML (SDV) Z0FRAN IVP PRN ×2 (07:15→09:30)
[2021-10-13] MEDS ORDERED: NALOXONE 0.4 MG/ML 1 ML (NARCAN) VIAL IV PRN (07:15)
[2021-10-13] MEDS ORDERED: morphine PCA 100 MG/100 ML BAG IV PRN (07:15)
[2021-10-13] MEDS ORDERED: diphenhydrAMINE 50 MG/ML INJ (BENADRYL) IVP PRN (07:15)
--- NOTE | 2021-10-13 07:16 | Progress Note-Pre Operative ---
Pre-Operative Progress Note Date of Available H&P: Oct 13, 2021 Date H&P Reviewed: Oct 13, 2021 Time H&P Reviewed: 07:11 Changes from last HP none Pre-Operative Diagnosis: left knee primary osteoarthritis LITTLE DENNIS MD Oct 13, 2021 07:16
--- NOTE | 2021-10-13 07:17 | Progress Note-Post Operative ---
Post-Operative Progess Note Surgeon (s)/Hydropulper Operator (s) Surgeon LITTLE DENNIS MD Hydropulper Operator: Boyd Menendez Pre-Operative Diagnosis left knee primary osteoarthritis Post-Operative Diagnosis left knee primary osteoarthritis Procedure & Operative Findings Date of Procedure 10/13/21 Procedure Performed/Findings left total knee arthroplasty Anesthesia Type GETA Estimated Blood Loss Estimated blood loss (mL): minimal Specimens/Packing Specimens Removed none Packing: none LITTLE EDNNIS MD Oct 13, 2021 07:17
[2021-10-13] MEDS ORDERED: GLYCOPYRROLATE 0.2 MG/ML (ROBINUL) 2 ML VIAL ONE (07:19)
[2021-10-13] MEDS ORDERED: ONDANSETRON 4 MG/2 ML (SDV) Z0FRAN ONE (07:19)
[2021-10-13] MEDS ORDERED: fentaNYL INJ 100 MCG/2 ML AMP ONE (07:19)
[2021-10-13] MEDS ORDERED: proPOfol 200 MG/20 ML (DIPRIVAN) VIAL IV ONE (07:19)
[2021-10-13] MEDS ORDERED: ROCURONIUM 50 MG/5 ML (ZEMURON) VIAL IV ONE (07:20)
[2021-10-13] MEDS ORDERED: NEOSTIGMINE (BLOXIVERZ ) 1 MG/1ML 10 ML VIAL ONE (07:20)
--- NOTE | 2021-10-13 07:20 | D/C HH Face to Face Order ---
D/C Face to Face Orders Reconcile Patient Problems Problems Reviewed?: Yes Instructions for Patient Via [facility], Patient Instructions/FollowUp: three weeks Physician to follow Patient: three weeks Discharge Diet for Home: Regular Diet Patient Data-Allergies,Ht & Wt Patient Allergies: Coded Allergies: erythromycin base (Verified Allergy, Intermediate, RASH, 10/06/21) Sulfa (Sulfonamide Antibiotics) (Verified Allergy, Unknown, POSSIBLE RASH, 10/06/21) DOESN'T REMEMBER BEEN A LONG TIME AGO Height (Feet): 5 Height (Inches): 10.00 Weight (Pounds): 260 Weight (Ounces): 0.0 Home Health Need/Face to Face Date of Face to Face: Oct 13, 2021 Clinical Findings: Muscle weakness, Pain with ambulation, Unsteady gait I have seen Pt nxkb-tm-hums: Yes Discharged To: Home Diagnosis/Conditions: left total knee arthroplasty Patient is Homebound due to: Muscle weakness, Pain w/ambulation Homebound Status Due to the above stated illness, injury or surgical procedure (medical condition or diagnosis) and associated clinical findings, the patient is homebound because of his/her inability to leave home except with aid of a supportive device and/or person AND leaving the home requires a considerable and taxing effort or is medically contraindicated. Pt req the following assistanc: Walker Home Health Nursing Orders Home Health Services Order: Physical Therapy-Evaluate & Treat DC left knee andreia and apply steri strips 10/27/21 Home Health Infusion Therapy Line Start Date: Oct 13, 2021 Therapy Orders Therapy Orders: Physical Therapy, PT to assess for OT Therapy Specific Orders: Eval assistive deivces, Teach enviro modifications/safety, Gait training, Increase strength/endurance, Provider maintenance therapy, Restore ROM Certify Stmt I certify that this patient is under my care and that I, a nurse practitioner or a physician; a assistant professor of biology working with me, had a face to face encounter that - meets the physician face to face encounter requirements with this patient as dated. LITTLE DENNIS MD Oct 13, 2021 07:20
[2021-10-13] MEDS ORDERED: INTRA-ARTICULAR IU ONE ×5 (07:30)
[2021-10-13] MEDS: NS IV 1000 ML 1,000 ML IV SCH ×2 (07:59→12:51)
[2021-10-13] MEDS ORDERED: ESMOLOL 100 MG/10 ML (BREVIBLOC) VIAL ONE (08:10)
[2021-10-13] MEDS ORDERED: TRANEXAMIC ACID 100 MG/ML 10 ML INJECTION ONE (08:19)
[2021-10-13] MEDS ORDERED: SEVOFLURANE (ULTANE) 15 ML INHAL SOLN ONE (08:59)
[2021-10-13] MEDS ORDERED: morphine INJ 10 MG/ML 1ML (SYR OR VIAL) ONE (09:21)
[2021-10-13] MEDS ORDERED: morphine INJ 10 MG/ML 1ML (SYR OR VIAL) IVP ONE (09:30)
[2021-10-13] MEDS ORDERED: HYDROmorphone 2 MG/ML VIAL (DILAUDID) IV ONE (09:30)
--- NOTE | 2021-10-13 10:04 | Diagnostic Imaging Report ---
INDICATION: Left knee surgery. TIME OF EXAM: 9:34 AM. FINDINGS: Two views of the left knee demonstrate postop changes of total knee arthroplasty. The prosthetic elements are in good position without fracture or loosening. There are overlying skin andreia. IMPRESSION: Satisfactory postop left knee. Dictated by: Dictated on workstation # [id number]
--- NOTE | 2021-10-13 11:11 | Progress Note ---
Standard Progress Note Progress Notes/Assess & Plan Date Seen by a Provider: Oct 13, 2021 Time Seen by a Provider: 09:15 Progress/Assessment & Plan post op check no complaints radiographs--HW well positioned without fracture LLE--2 plus DP pulse with brisk cap refill. Intact DF and PF of toes and ankle sensation intact to light touch throughout s/p LTKA mobilize as able LITTLE DENNIS MD Oct 13, 2021 11:11
[2021-10-13] MEDS: oxyCODONE/APAP 5/325MG (PERCOCET 5) TABLET PO PRN ×3 (12:45→20:56)
[2021-10-13] MEDS: SENNA W/DOCUSATE (SENOKOT S) TABLET PO SCH ×2 (12:52→20:54)
--- NOTE | 2021-10-13 14:47 | Physical Therapy Evaluation ---
PT Evaluation-General Medical Diagnosis Admission Date Oct 13, 2021 at 06:00 Medical Diagnosis: left TKA Onset Date: Oct 13, 2021 Therapy Diagnosis Therapy Diagnosis: impaired mobility, ROM Height/Weight Height (Feet): 5 Height (Inches): 10.00 Weight (Pounds): 260 Weight (Ounces): 0.0 Weight Bear Status Left Lower Extremity: Left Weight Bearing/Tolerated Referral Physician: Shon Reason for Referral: Evaluation/Treatment Medical History Additional Medical History PAST MEDICAL HISTORY: Hypertension, hypothyroidism. PAST SURGICAL HISTORY: Left knee arthroscopy, left calcaneal osteophyte excision, gastric sleeve, left breast biopsy and tonsillectomy. Reviewed History: Yes Social History Home: Single Level Current Living Status: Children Entry Into Home: Stairs With Railing PT Steps Into Home: 4 Prior Prior Level of Function SCALE: Activities may be completed with or without assistive devices. 2-Mqgrretrrz-xdtzquz completes the activity by him/herself with no assistance from a helper. 5-Set-up or Clean-up Assistance-helper sets up or cleans up; patient completes activity. [place] assists only prior to or following the activity. 4-Supervision or Touching Assistance-helper provides verbal cues and/or touching/steadying and/or contact guard assistance as patient completes activity. Assistance may be provided throughout the activity or intermittently. 3-Partial/Moderate Assistance-helper does LESS THAN HALF the effort. [place] lifts, holds or supports trunk or limbs, but provides less than half the effort. 2-Substantial/Maximal Assistance-helper does MORE THAN HALF the effort. [place] lifts or holds trunk or limbs and provides more than half the effort. 7-Lichlpbsm-lfgbls does ALL the effort. Patient does none of the effort to complete the activity. Or, the assistance of 2 or more helpers is required for the patient to complete the activity. If activity was not attempted, code reason: 7-Patient Refused. 9-Not Applicable-not attempted and the patient did not perform the activity before the current illness, exacerbation or injury. 10-Not Attempted due to Environmental Limitations-(lack of equipment, weather restraints, etc.). 88-Not Attempted due to Medical Conditions or Safety Concerns. Bed Mobility: 6 Transfers (B,C,W/C): 6 Gait: 6 Stairs: 6 Indoor Mobility (Ambulation): Independent Stairs: Independent PT Evaluation-Current Subjective Patient in bed pre tx, agrees to PT, has 4/10 pain in left knee. Pt/Family Goals to be independent at home Objective Patient Orientation: Person, Place, Situation Attachments: Polar Pack, IV ROM/Strength ROM Lower Extremities left knee flexion 90 degrees, extension +10 degrees Sensory Hearing: Functional Sensation Right Lower Extremit: Intact Sensation Left Lower Extremity: Intact Transfers Roll Left to Right (QC): 6 Sit to Lying (QC): 3 Lying to Sitting/Side of Bed(Q: 3 Sit to Stand (QC): 4 Chair/Ewa-ac-Rdfah Xfer(QC): 4 Gait Does the Patient Walk?: Yes Mode of Locomotion: Walk Anticipated Mode of Locomotion: Walk Walk 10 feet (QC): 4 Distance: 20' Gait Assistive Device: FWW Comments/Gait Description slow but steady ambulation, no knee buckling, maintains a flexed left knee, fair step-through Balance Sitting Static: Normal Sitting Dynamic: Normal Standing Static: Fair Standing Dynamic: Fair Treatment supine LLE total knee protocol x10 (AP, HS, QS, SAQ, SLR) Assessment/Needs Patient in bed post tx with nurse call, phone, tray, all needs met. Patient has impaired mobility and ROM, needs a little assist for supine <-> sit. Rehab Potential: Fair PT Intermediate Goals Intermediate Goals PT Intermediate Goals Time Frame: Oct 20, 2021 Roll Left & Right (QC): 6 Sit to Lying (QC): 6 Lying-Sitting on Side/Bed(QC): 6 Sit to Stand (QC): 6 Chair/Czx-us-Rnkgu Xfer(QC): 6 Walk 10 feet (QC): 6 Walk 50ft with 2 Turns (QC): 6 Walk 150 ft (QC): 6 1 Step (curb) (QC): 4 4 Steps (QC): 4 PT Plan Problem List Problem List: Activity Tolerance, Functional Strength, Safety, Balance, Gait, Transfer, Bed Mobility, ROM Treatment/Plan Treatment Plan: Continue Plan of Care Treatment Plan: Bed Mobility, Education, Functional Activity Joaquim, Functional Strength, Gait, Safety, Therapeutic Exercise, Transfers Treatment Duration: Oct 20, 2021 Frequency: 11 times per week Estimated Hrs Per Day: .25 hour per day Patient and/or Family Agrees t: Yes Safety Risks/Education Patient Education: Gait Training, Transfer Techniques, Correct Positioning, Safety Issues Teaching Recipient: Patient Teaching Methods: Demonstration, Discussion Response to Teaching: Reinforcement Needed Discharge Recommendations Plan Patient will perform bed mobility and transfer training, balance and endurance training, functional strengthening, stair training, gait training, and education, to improve functional mobility and independence at home. Therapy Discharge Recommendati: Home & Family, Post Acute PT Time/GCodes Time In: 1340 Time Out: 1404 Total Billed Treatment Time: 24 Total Billed Treatment 1 visit EVL 10' FA 14' CHRISTIANO KINNEY PT Oct 13, 2021 14:47
--- NOTE | 2021-10-13 15:42 | OPERATIVE REPORT ---
DATE OF SERVICE: 10/13/2021 PREOPERATIVE DIAGNOSIS: Left knee primary osteoarthritis. POSTOPERATIVE DIAGNOSIS: Left knee primary osteoarthritis. PROCEDURE: Left total knee arthroplasty. SURGEON: Tray Dennis MD FINE ARTS CHAIR: Boyd Menendez, who assisted throughout the procedure and closed the incision. ANESTHESIA: General endotracheal by Dr. Edwards. TOURNIQUET TIME: Approximately 62 minutes at 300 mmHg. ESTIMATED BLOOD LOSS: Minimal. DRAINS: None. COMPLICATIONS: None. POSTOPERATIVE PLAN: Routine protocol. MATERIALS: Microport cemented size 6 femur, cemented size 6 tibia with 10 mm insert and cemented size 32 patellar button. The patient was transferred to recovery room awake and stable condition. STATEMENT OF MEDICAL NECESSITY: The patient is a 61-year-old female with longstanding progressive left knee pain. Radiographs revealed severe tricompartmental osteoarthritis. She has undergone treatment with injections, anti-inflammatories and rest without relief. Due to progressive loss of function and limitations of activities, the patient elected to proceed with surgical intervention. DESCRIPTION OF PROCEDURE: After risks and benefits of procedure were discussed and questions were answered, an informed consent was signed and placed on chart, the operative site was confirmed in the preoperative holding area initialed by the surgeon. The patient was then transferred to the operating room and after adequate levels of general endotracheal anesthetic were obtained, a timeout was called, confirming the operative site. Left lower extremity was prepped and draped in the usual sterile fashion with the leg elevated and the knee flexed, tourniquet was inflated to 300 mmHg. Standard anterior approach was utilized. Hemostasis was obtained with cautery. A medial parapatellar arthrotomy was performed leaving 1 cm cuff on the patella for later reattachment. A portion of the fat pad was resected. A subperiosteal release was performed in the proximal medial tibia being careful to stay on the bony surface. The ACL was resected. A portion of the fat pad was resected. The intramedullary guide was passed into the femoral canal and the distal cutting block was placed and distal cut was made. Femur was sized to a size 6, a 6 cutting block was placed parallel to the epicondylar axis and cuts were made from posterior to anterior. Subperiosteal release was then carefully performed on the posterior distal femur, being careful to stay on the bony surface. Intramedullary guide was then passed into the tibia. The cutting block was placed. The drop brigida transected the intermalleolar axis and the cut was made. The 6 baseplate was placed. The drop brigida transected the intermalleolar axis. This was prepared with the drill and keel punch. The 10 mm insert was placed. The femoral trial was placed, and trochlear cut was made. The patella was prepared by resecting 10 mm off the undersurface. The peg guide was placed, and peg holes were drilled. The 32 trial was placed. The knee was taken through motion. Full extension was easily obtained, 120 degrees of flexion with gravity was easily obtained. The patella tracked well. There was no anterior/posterior or medial/lateral laxity in flexion or extension. The trials were removed. The joint was irrigated with pulse lavage. Periarticular block was placed in the posterior capsule, medial and lateral retinaculum extensor mechanism, subcutaneous tissues. The bone ends were irrigated and dried. The tibial baseplate was cemented into position and excessive cement was removed, the superior surface was irrigated and dried and the polyethylene insert was placed. Distal femur was irrigated and dried and the femoral prosthesis was cemented into position. Excessive cement was removed. The knee was brought out into full extension until cement had cured. The undersurface of patella was irrigated and dried and the patellar button was cemented into position. Excessive cement was removed. Once the cement had cured, the knee was taken through range of motion. Full extension was easily obtained 120 degrees of flexion with gravity was easily obtained. The patella tracked well. There was no anterior/posterior or medial/lateral laxity in flexion or extension. The joint was further irrigated. The arthrotomy was closed with #2 Tevdek in aisrcp-ua-pcdol interrupted fashion. Knee was flexed. The repair was stable. Subcutaneous tissues were irrigated. A 0 Vicryl was used to deep subcutaneous layer, 2-0 Vicryl for the superficial subcutaneous layer, andreia used on the skin. A soft dressing was applied. The tourniquet was deflated. The patient was transferred to the recovery room awake and in stable condition. Job ID: [id number] DocumentID: [id number] Dictated Date: 10/13/2021 09:16:40 Reed Or Wind Instrument Repairer Date: 10/13/2021 15:41:14 Dictated By: TRAY DENNIS MD
[2021-10-13] MEDS: CEFUROXIME INJECTION 750 MG in NS (IVPB) 50 ML IV SCH (17:35)
[2021-10-14] VITALS (7 sets, daily range): BP systolic 97–155; BP diastolic 63–84
[2021-10-14] MEDS ORDERED: CEFUROXIME 750 MG/7.5 ML (ZINACEF) VIAL ONE
[2021-10-14] MEDS ORDERED: NS (IVPB) 50 ML ONE
[2021-10-14] MEDS: CEFUROXIME INJECTION 750 MG in NS (IVPB) 50 ML IV SCH (00:50)
[2021-10-14] MEDS: NS IV 1000 ML 1,000 ML IV SCH (00:50)
[2021-10-14] MEDS: oxyCODONE/APAP 5/325MG (PERCOCET 5) TABLET PO PRN ×6 (03:49→23:16)
[2021-10-14 06:06] LABS: HEMOGLOBIN 10.1 g/dL (11.5-16.0)
--- NOTE | 2021-10-14 07:42 | Progress Note ---
Standard Progress Note Progress Notes/Assess & Plan Date Seen by a Provider: Oct 14, 2021 Time Seen by a Provider: 07:41 Progress/Assessment & Plan post op check no complaints radiographs--HW well positioned without fracture LLE--2 plus DP pulse with brisk cap refill. Intact DF and PF of toes and ankle sensation intact to light touch throughout s/p LTKA mobilize as able Final Diagnosis no complaints Vital Signs Date Time Temp Pulse Resp B/P (MAP) Pulse Ox O2 Delivery O2 Flow Rate FiO2 10/14/21 06:04 18 10/14/21 03:50 36.0 79 18 113/67 (82) 95 Room Air 10/14/21 00:00 36.0 71 18 106/64 (78) 95 Room Air 10/13/21 21:06 Room Air 10/13/21 19:30 36.8 85 20 127/73 (91) 95 Room Air 10/13/21 16:00 36.5 78 20 148/81 (103) 92 Room Air 10/13/21 13:39 37.0 75 18 134/78 (96) 94 Room Air 10/13/21 12:00 37.0 75 18 134/78 (96) 94 Room Air 10/13/21 10:27 36.0 80 18 138/81 (100) 96 Room Air 10/13/21 10:10 36.1 18 144/76 (98) Room Air 10/13/21 10:10 Room Air 10/13/21 09:55 18 139/87 (104) Room Air 10/13/21 09:55 Room Air 10/13/21 09:55 36.4 10/13/21 09:55 36.4 10/13/21 09:42 36.4 10/13/21 09:42 36.4 10/13/21 09:40 OxyMask 4.00 10/13/21 09:40 18 159/68 (98) OxyMask 4.00 10/13/21 09:28 36.4 10/13/21 09:25 OxyMask 4.00 10/13/21 09:25 16 156/79 (104) 99 OxyMask 4.00 10/13/21 09:13 OxyMask 4.00 10/13/21 09:13 36.1 16 136/96 (109) 98 OxyMask 4.00 I & O 10/14/21 07:00 Intake Total 3802 ml Output Total 1850 ml Balance 1952 ml Laboratory Tests Test 10/14/21 06:00 Range/Units Hemoglobin 10.1 L 11.5-16.0 g/dL Hematocrit 31 L 35-52 % LLE--able to perform SLR flexion to 90 no calf tenderness s/p LTKA doing well PT/OT LITTLE DENNIS MD Oct 14, 2021 07:41
[2021-10-14] MEDS: ENOXAPARIN INJECTION 30 MG/0.3 ML SYR SC SCH ×2 (08:04→20:36)
[2021-10-14] MEDS: SENNA W/DOCUSATE (SENOKOT S) TABLET PO SCH ×2 (08:04→20:36)
--- NOTE | 2021-10-14 09:06 | Physical Therapy Daily Note ---
PT Daily Note-Current Subjective Patient in bed pre tx, agrees to PT, has 6/10 pain in left knee. Appearance Patient in bed post tx with nurse call, phone, tray, all needs met. Mental Status Patient Orientation: Normal For Age Attachments: Polar Pack, IV Transfers SCALE: Activities may be completed with or without assistive devices. 2-Vofqwbeubk-zubzrut completes the activity by him/herself with no assistance from a helper. 5-Set-up or Clean-up Assistance-helper sets up or cleans up; patient completes activity. [place] assists only prior to or following the activity. 4-Supervision or Touching Assistance-helper provides verbal cues and/or touching/steadying and/or contact guard assistance as patient completes activity. Assistance may be provided throughout the activity or intermittently. 3-Partial/Moderate Assistance-helper does LESS THAN HALF the effort. [place] lifts, holds or supports trunk or limbs, but provides less than half the effort. 2-Substantial/Maximal Assistance-helper does MORE THAN HALF the effort. [place] lifts or holds trunk or limbs and provides more than half the effort. 7-Eqxpvmxvl-sxiqrq does ALL the effort. Patient does none of the effort to complete the activity. Or, the assistance of 2 or more helpers is required for the patient to complete the activity. If activity was not attempted, code reason: 7-Patient Refused. 9-Not Applicable-not attempted and the patient did not perform the activity before the current illness, exacerbation or injury. 10-Not Attempted due to Environmental Limitations-(lack of equipment, weather restraints, etc.). 88-Not Attempted due to Medical Conditions or Safety Concerns. Roll Left & Right (QC): 6 Sit to Lying (QC): 3 Lying to Sitting/Side of Bed(Q: 3 Sit to Stand (QC): 4 Chair/Tnn-eq-Shdco Xfer(QC): 4 min assist with left leg for supine <-> sit Weight Bearing Left Lower Extremity: Left Weight Bearing/Tolerated Gait Training Distance: 100' Walk 10 feet (QC): 4 Walk 50 ft with 2 Turns(QC): 4 Gait Persons Needed: 1 Gait Assistive Device: FWW slow but steady ambulation, SBA, more pain today Exercises Supine Ex: Ankle pumps, Quad Set, Heel Slides, Short Arc Quads, Straight leg raise Supine Reps: 10 Treatments bed mobility and transfers, ambulation, ROM Assessment Current Status: Fair Progress good progress for 2nd day post op PT Senior Care Goals Electric Golf Cart Repairers Goals PT Senior Care Goals Time Frame: Oct 20, 2021 Roll Left & Right (QC): 6 Sit to Lying (QC): 6 Lying-Sitting on Side/Bed(QC): 6 Sit to Stand (QC): 6 Chair/Rns-ih-Flsrq Xfer(QC): 6 Walk 10 feet (QC): 6 Walk 50ft with 2 Turns (QC): 6 Walk 150 ft (QC): 6 1 Step (curb) (QC): 4 4 Steps (QC): 4 PT Plan Problem List Problem List: Activity Tolerance, Functional Strength, Safety, Balance, Gait, T ransfer, Bed Mobility, ROM Treatment/Plan Treatment Plan: Continue Plan of Care Treatment Plan: Bed Mobility, Education, Functional Activity Joaquim, Functional Strength, Gait, Safety, Therapeutic Exercise, Transfers Treatment Duration: Oct 20, 2021 Frequency: 11 times per week Estimated Hrs Per Day: .25 hour per day Patient and/or Family Agrees t: Yes Safety Risks/Education Patient Education: Gait Training, Transfer Techniques, Correct Positioning, Safety Issues Teaching Recipient: Patient Teaching Methods: Demonstration, Discussion Response to Teaching: Reinforcement Needed Time/GCodes Time In: 830 Time Out: 0854 Total Billed Treatment Time: 23 Total Billed Treatment 1 visit FA CHRISTIANO OCONNELL PT Oct 14, 2021 09:05
--- NOTE | 2021-10-14 12:05 | Occupational Therapy Eval ---
OT Evaluation-General/PLF Medical Diagnosis Admission Date Oct 13, 2021 at 06:00 Medical Diagnosis: left TKA Onset Date: Oct 13, 2021 Therapy Diagnosis Therapy Diagnosis: reduced endurance, adl status Height/Weight Height (Feet): 5 Height (Inches): 10.00 Weight (Pounds): 260 Weight (Ounces): 0.0 Precautions Precautions/Isolations: Contact Isolation, Droplet Isolation, Fall Prevention Weight Bear Status Weight Bearing Restriction: Weight Bearing/Tolerated Location Restriction: L LE Referral Physician: Shon Referral Reason: Evaluation/Treatment Medical History Pertinent Medical History: HTN Current History S/p L TKA, + for COVID 19. Per patient, she lives with her daughter in a trailer home. She was indep with adls and iadls (except her daughter manages the cleaning) prior to admission. She was not using any AD at baseline. Social History Home: Single Level (trailer home) Current Living Status: Children Entry Into Home: Stairs With Railing Steps Into Home: 4 ADL-Prior Level of Function SCALE: Activities may be completed with or without assistive devices. 3-Ubntzxychm-qlscawz completes the activity by him/herself with no assistance from a helper. 5-Set-up or Clean-up Assistance-helper sets up or cleans up; patient completes activity. [place] assists only prior to or following the activity. 4-Supervision or Touching Assistance-helper provides verbal cues and/or touching/steadying and/or contact guard assistance as patient completes activity. Assistance may be provided throughout the activity or intermittently. 3-Partial/Moderate Assistance-helper does LESS THAN HALF the effort. [place] lifts, holds or supports trunk or limbs, but provides less than half the effort. 2-Substantial/Maximal Assistance-helper does MORE THAN HALF the effort. [place] lifts or holds trunk or limbs and provides more than half the effort. 0-Atdoafnmv-enmiol does ALL the effort. Patient does none of the effort to complete the activity. Or, the assistance of 2 or more helpers is required for the patient to complete the activity. If activity was not attempted, code reason: 7-Patient Refused. 9-Not Applicable-not attempted and the patient did not perform the activity before the current illness, exacerbation or injury. 10-Not Attempted due to Environmental Limitations-(lack of equipment, weather restraints, etc.). 88-Not Attempted due to Medical Conditions or Safety Concerns. Self Care: Independent Functional Cognition: Independent DME/Equipment: Tub/Shower OT Current Status Subjective Pt reports pain of 7/10 in L knee. Request information on DME Appearance Pt returned to supine in bed, all needs within reach, RN notified. Mental Status/Objective Patient Orientation: Person, Place, Situation Attachments: IV Current Glasses/Contacts: Yes Hearing Aids: No Dentures/Partials: Yes Hand Dominance: Right Upper Extremity ROM WNL Upper Extremity Strength WFL ADL-Treatment On/Off Footwear (QC): 3 Toileting Hygiene (QC): 4 Supine>sit: SBA, extra time to transition L foot off side of bed. Pt able to demonstrate ability to don/doff R sock with extra time and effort. Dependent to don L sock secondary to pain. Pt politely declines learning about AE, reports her daughter will help her post discharge. She stood and ambulated to/from the bathroom with CGA and use of walker. Min to safely lower/stand from toilet; poor eccentric control. Pt reports that she will need a bedside commode or toilet ri ser and a shower chair. Education on DME including where to purchase. Pt able to complete coco care and clothing management with steadying assist. Mod a needed to return to supine as pt needed assistance with lifting BUE's into bed. Education OT Patient Education: Correct positioning, Energy conservation, Modified ADL techniques, Purpose of tx/functional activities, Reviewed precautions, Safety issues, Transfer techniques, Use of adapted equipment Teaching Recipient: Patient Teaching Methods: Demonstration, Discussion Response to Teaching: Verbalize Understanding, Return Demonstration, Reinforcement Needed OT Prison Goals Tin Dipper Goals Time Frame: Oct 21, 2021 Oral Hygiene (QC): 5 Toileting Hygiene (QC): 6 Shower/Bathe Self (QC): 4 Upper Body Dressing (QC): 5 Lower Body Dressing (QC): 5 Additional Goals: 1-Demonstrate ADL Tasks, 2-Verbalize Understanding, 3- ImproveStrength/Joaquim 1=Demonstrate adherence to instructed precautions during ADL tasks. 2=Patient will verbalize/demonstrate understanding of assistive devices/modifications for ADL. 3=Patient will improve strength/tolerance for activity to enable patient to perform ADL's. OT Education/Plan Problem List/Assessment Assessment: Decreased Activ Tolerance, Impaired Bed Mobility, Impaired Funct Balance, Impaired I ADL's, Impaired Self-Care Skills Discharge Recommendations Plan/Recommendations: Continue POC Therapy Discharge Recommendati: Post Acute OT (home health OT) Equpiment Recommendations-D/C: Toilet Riser with Rails, Bath Chair, Outreach Associate Treatment Plan/Plan of Care Treatment,Training & Education: Yes Patient would benefit from OT for education, treatment and training to promote independence in ADL's, mobility, safety and/or upper extremity function for ADL's. Plan of Care: ADL Retraining, Caregiver Training, Functional Mobility, Group Exercise/Act as Ind, UE Funct Exercise/Act Treatment Duration: Oct 21, 2021 Frequency: 5 times per week Estimated Hrs Per Day: .25 hour per day Agreement: Yes Rehab Potential: Fair Time/GCodes Start Time: 11:15 Stop Time: 11:40 Total Time Billed (hr/min): 25 Billed Treatment Time 1 visit EVM (10 min) ADL (15 min) Sheila Moeller OT Oct 14, 2021 12:05
--- NOTE | 2021-10-14 13:32 | Anesthesia-General Post-Op ---
General Patient Condition Mental Status/LOC: Same as Preop Cardiovascular: Satisfactory Nausea/Vomiting: Absent Respiratory: Satisfactory Pain: Controlled Complications: Absent Post Op Complications Complications None Follow Up Care/Instructions Patient Instructions None needed. Anesthesia/Patient Condition Patient Condition Patient is doing well, no complaints, stable vital signs, no apparent adverse anesthesia problems. No complications reported per nursing. EMETERIO DELUCA CRNA Oct 14, 2021 13:32
--- NOTE | 2021-10-14 15:24 | Physical Therapy Daily Note ---
PT Daily Note-Current Subjective Pt asleep with polar pack on upon arrival. Pt agrees to PT, asking to use BR & walk. Pain Location: Left Location Body Site: Knee Pain Description: Ache Mental Status Patient Orientation: Person, Place, Time, Situation Attachments: Polar Pack, IV Transfers SCALE: Activities may be completed with or without assistive devices. 9-Uhzrmfffzt-jrsytyc completes the activity by him/herself with no assistance from a helper. 5-Set-up or Clean-up Assistance-helper sets up or cleans up; patient completes activity. [place] assists only prior to or following the activity. 4-Supervision or Touching Assistance-helper provides verbal cues and/or touching/steadying and/or contact guard assistance as patient completes activity. Assistance may be provided throughout the activity or intermittently. 3-Partial/Moderate Assistance-helper does LESS THAN HALF the effort. [place] lifts, holds or supports trunk or limbs, but provides less than half the effort. 2-Substantial/Maximal Assistance-helper does MORE THAN HALF the effort. [place] lifts or holds trunk or limbs and provides more than half the effort. 6-Mdzrdfolm-zsfoxv does ALL the effort. Patient does none of the effort to complete the activity. Or, the assistance of 2 or more helpers is required for the patient to complete the activity. If activity was not attempted, code reason: 7-Patient Refused. 9-Not Applicable-not attempted and the patient did not perform the activity before the current illness, exacerbation or injury. 10-Not Attempted due to Environmental Limitations-(lack of equipment, weather restraints, etc.). 88-Not Attempted due to Medical Conditions or Safety Concerns. Sit to Lying (QC): 3 Lying to Sitting/Side of Bed(Q: 4 Sit to Stand (QC): 4 Toilet Transfer (QC): 4 Weight Bearing Left Lower Extremity: Left Weight Bearing/Tolerated Gait Training Does the Patient Walk?: Yes Distance: 20' x4 Walk 10 feet (QC): 4 Walk 50 ft with 2 Turns(QC): 4 Gait Persons Needed: 1 Gait Assistive Device: FWW Treatments TF to EOB then standing before amb. to BR. Pt is able to complete pericare. Pt amb. in room before returning to EOB where pt requires Min-Mod A to lift L LE into bed. All needs met, polar pack applied & call light in hand. Assessment Current Status: Good Progress Pt is able to increase distance ambulated. Pt is limited due to pain and COVID dx at this time. PT Plasterer Spot Goals Plasterer Spot Goals PT Plasterer Spot Goals Time Frame: Oct 20, 2021 Roll Left & Right (QC): 6 Sit to Lying (QC): 6 Lying-Sitting on Side/Bed(QC): 6 Sit to Stand (QC): 6 Chair/Vzp-qo-Yyrer Xfer(QC): 6 Walk 10 feet (QC): 6 Walk 50ft with 2 Turns (QC): 6 Walk 150 ft (QC): 6 1 Step (curb) (QC): 4 4 Steps (QC): 4 PT Plan Problem List Problem List: Gait, Transfer Treatment/Plan Treatment Plan: Continue Plan of Care Treatment Plan: Bed Mobility, Education, Functional Activity Joaquim, Functional Strength, Gait, Safety, Therapeutic Exercise, Transfers Treatment Duration: Oct 20, 2021 Frequency: 11 times per week Estimated Hrs Per Day: .25 hour per day Patient and/or Family Agrees t: Yes Safety Risks/Education Patient Education: Gait Training, Transfer Techniques, Reviewed Use of Ice, C orrect Positioning Teaching Recipient: Patient Teaching Methods: Discussion Response to Teaching: Verbalize Understanding Time/GCodes Time In: 1437 Time Out: 1502 Total Billed Treatment Time: 25 Total Billed Treatment 1, FA (10m) & GT (15m) JUAN BRYANT DUMPCART DRIVER Oct 14, 2021 15:24
[2021-10-15] MEDS: NS IV 1000 ML 1,000 ML IV SCH (00:43)
--- NOTE | 2021-10-15 03:48 | DISCHARGE SUMMARY ---
DATE OF SERVICE: DIAGNOSES: 1. Left knee primary osteoarthritis. 2. Hypertension. 3. Hypothyroidism. PROCEDURE: Left total knee arthroplasty. SUMMARY: The patient is a 61-year-old female who underwent a left total knee arthroplasty on the day of admission. Postoperatively, she did well. At time of discharge, her wound was clean and dry. She had no calf tenderness. Negative Homans sign. She was tolerating a diet well and tolerating pain with oral pain medication. CONDITION AT DISCHARGE: Good. DISCHARGE DIET: Regular. FOLLOWUP: Followup is in three weeks. ACTIVITIES: Weightbearing as tolerated with a walker. DISCHARGE MEDICATIONS: Her home medications, Percocet as needed for pain and one aspirin per day for 30 days. Job ID: [id number] DocumentID: [id number] Dictated Date: 10/14/2021 07:43:20 Bottom Painter Date: 10/15/2021 03:47:44 Dictated By: LITTLE DENNIS MD
[2021-10-15] MEDS: oxyCODONE/APAP 5/325MG (PERCOCET 5) TABLET PO PRN ×3 (03:52→09:54)
[2021-10-15 03:54] VITALS: BP 168/97
--- NOTE | 2021-10-15 06:56 | Progress Note ---
Standard Progress Note Progress Notes/Assess & Plan Date Seen by a Provider: Oct 15, 2021 Time Seen by a Provider: 06:55 Progress/Assessment & Plan post op check no complaints radiographs--HW well positioned without fracture LLE--2 plus DP pulse with brisk cap refill. Intact DF and PF of toes and ankle sensation intact to light touch throughout s/p LTKA mobilize as able Final Diagnosis no comploainta Vital Signs Date Time Temp Pulse Resp B/P (MAP) Pulse Ox O2 Delivery O2 Flow Rate FiO2 10/15/21 06:33 96 Room Air 10/15/21 03:54 37.9 88 20 168/97 (120) 96 Room Air 10/14/21 23:15 37.7 80 20 148/84 (105) 92 Room Air 10/14/21 21:09 18 10/14/21 20:30 Room Air 10/14/21 19:44 36.7 79 20 150/83 (105) 92 Room Air 10/14/21 15:47 36.2 69 20 97/63 (74) 93 Room Air 10/14/21 12:17 36.9 86 18 155/69 (97) 94 Room Air 10/14/21 09:00 96 Room Air 0.00 10/14/21 08:25 37.0 76 18 127/73 (91) 96 Room Air 10/14/21 08:05 Room Air 0.00 I & O 10/15/21 07:00 Intake Total 2565 ml Output Total 1750 ml Balance 815 ml LLE--incision clean and dry. No calf tenderness., Neg Raul's s/p LTKA doing well DC after PT today LITTLE DENNIS MD Oct 15, 2021 06:56
[2021-10-15] MEDS ORDERED: morphine INJ 4 MG/ML 1 ML (VIAL/SYRINGE) IVP PRN (07:00)
[2021-10-15 07:25] LABS: HEMATOCRIT 33 % (35-52); HEMOGLOBIN 10.5 g/dL (11.5-16.0)
[2021-10-15] MEDS: SENNA W/DOCUSATE (SENOKOT S) TABLET PO SCH (07:41)
[2021-10-15] MEDS: ENOXAPARIN INJECTION 30 MG/0.3 ML SYR SC SCH (07:41)
[2021-10-15 08:55] VITALS: BP 107/69
[2021-10-15 12:21] VITALS: BP 138/78
[2021-10-15 13:15] VITALS: BP 138/78
[2021-10-15 13:30] LABS: BASOPHILS % (AUTO) 0 % (0-10); EOSINOPHILS # (AUTO) 0.1 10^3/uL (0.0-0.3); EOSINOPHILS % (AUTO) 1 % (0-10); LYMPHOCYTES # (AUTO) 1.8 10^3/uL (1.0-4.0); LYMPHOCYTES % (AUTO) 25 % (12-44); MEAN CORPUSCULAR HEMOGLOBIN 30 pg (25-34); MEAN CORPUSCULAR HGB CONC 32 g/dL (32-36); MEAN CORPUSCULAR VOLUME 94 fL (80-99); MEAN PLATELET VOLUME 11.3 fL (9.0-12.2); MONOCYTES # (AUTO) 0.8 10^3/uL (0.0-1.0); MONOCYTES % (AUTO) 11 % (0-12); NEUTROPHILS # (AUTO) 4.7 10^3/uL (1.8-7.8); NEUTROPHILS % (AUTO) 63 % (42-75); PLATELET COUNT 164 10^3/uL (130-400); WHITE BLOOD COUNT 7.5 10^3/uL (4.3-11.0)
[2021-10-15 13:46] LABS: CREATININE SERUM 0.63 MG/DL (0.60-1.30); POTASSIUM 3.7 MMOL/L (3.6-5.0)
[2021-10-15 13:47] LABS: ALBUMIN 3.2 GM/DL (3.2-4.5); BILIRUBIN,TOTAL 0.7 MG/DL (0.1-1.0); CALCIUM 8.1 MG/DL (8.5-10.1); TOTAL PROTEIN 5.5 GM/DL (6.4-8.2)
--- NOTE | 2021-10-15 15:04 | Physical Therapy Daily Note ---
PT Daily Note-Current Subjective Pt in bed upon arrival and agrees to PT. Says she is eager to go home is feeling pretty good today. Pain Numeric Pain Scale: 4 Location: Left Location Body Site: Knee Mental Status Patient Orientation: Person, Place, Time, Situation Transfers SCALE: Activities may be completed with or without assistive devices. 4-Zmqytjyfxf-guqifak completes the activity by him/herself with no assistance from a helper. 5-Set-up or Clean-up Assistance-helper sets up or cleans up; patient completes activity. [place] assists only prior to or following the activity. 4-Supervision or Touching Assistance-helper provides verbal cues and/or touching/steadying and/or contact guard assistance as patient completes activity. Assistance may be provided throughout the activity or intermittently. 3-Partial/Moderate Assistance-helper does LESS THAN HALF the effort. [place] lifts, holds or supports trunk or limbs, but provides less than half the effort. 2-Substantial/Maximal Assistance-helper does MORE THAN HALF the effort. [place] lifts or holds trunk or limbs and provides more than half the effort. 8-Rdzxzubiz-vmgmmi does ALL the effort. Patient does none of the effort to complete the activity. Or, the assistance of 2 or more helpers is required for the patient to complete the activity. If activity was not attempted, code reason: 7-Patient Refused. 9-Not Applicable-not attempted and the patient did not perform the activity b efore the current illness, exacerbation or injury. 10-Not Attempted due to Environmental Limitations-(lack of equipment, weather restraints, etc.). 88-Not Attempted due to Medical Conditions or Safety Concerns. Sit to Lying (QC): 4 Lying to Sitting/Side of Bed(Q: 5 Sit to Stand (QC): 4 Weight Bearing Left Lower Extremity: Left Weight Bearing/Tolerated Gait Training Does the Patient Walk?: Yes Distance: 100' Walk 10 feet (QC): 5 Walk 50 ft with 2 Turns(QC): 5 Walk 150 ft (QC): 5 Gait Persons Needed: 1 Gait Assistive Device: FWW slow antalgic Exercises Supine Ex: Quad Set, Heel Slides, Short Arc Quads, Straight leg raise Supine Reps: 15 Treatments Pt performs supine exs and then amb in room. Pt then TFs back to bed. Call light nearby and all needs met as PT departs. Assessment Current Status: Good Progress Pt experiences some (R) hip pain following amb but does not rate. Pt tolerated amb well. Required Bobbi for LLE placement in to bed. PT Project Financial Analyst Goals Prison Goals PT Prison Goals Time Frame: Oct 20, 2021 Roll Left & Right (QC): 6 Sit to Lying (QC): 6 Lying-Sitting on Side/Bed(QC): 6 Sit to Stand (QC): 6 Chair/Tnq-yg-Jllyr Xfer(QC): 6 Walk 10 feet (QC): 6 Walk 50ft with 2 Turns (QC): 6 Walk 150 ft (QC): 6 1 Step (curb) (QC): 4 4 Steps (QC): 4 PT Plan Problem List Problem List: Activity Tolerance, Functional Strength Treatment/Plan Treatment Plan: Continue Plan of Care Treatment Plan: Bed Mobility, Education, Functional Activity Joaquim, Functional Strength, Gait, Safety, Therapeutic Exercise, Transfers Treatment Duration: Oct 20, 2021 Frequency: 11 times per week Estimated Hrs Per Day: .25 hour per day Patient and/or Family Agrees t: Yes Safety Risks/Education Patient Education: Gait Training, Correct Positioning Teaching Recipient: Patient Teaching Methods: Discussion Response to Teaching: Return Demonstration Time/GCodes Time In: 0954 Time Out: 1012 Total Billed Treatment Time: 18 Total Billed Treatment 1, Ex JOSE DAVIDSON SPORTS MEDICINE TRAINER Oct 15, 2021 15:04
== END 2021-10-15 06:54 | disposition home health service (06) ==
LOC: SDC 06:00 → UNDOADMOB 06:00 → INTOOBSV 06:00 → 4TH 06:00 → SURG 06:01 → 4TH 06:01 → EDSTATUS 08:00 → 4TH 09:25 → SURG 11:27 → 4TH 11:27 → UNDODISOB 10-15 13:15
PROVIDERS: ADMIT Orthopaedic Surgery; ATTEND Orthopaedic Surgery
DX: M17.12 Unilateral primary osteoarthritis, left knee (principal); I10 Essential (primary) hypertension; E03.9 Hypothyroidism, unspecified; Z88.2 Allergy status to sulfonamides
CPT/HCPCS: 27447; 73560; 80053; 85014; 85018; 85025; 86850; 86900; 86901; 94760; 97110; 97116; 97161; 97166; 97530 ×2; 97535; C1713; C1776 ×4; 36415; 96366; 96372; 96375; G0378